=== PATIENT | male | born 1970 | race Caucasian/White ===

== ENCOUNTER → 2019-08-25 11:48 | Outpatient (BNVA) | payer MEDICARE, BC, SELFPAY | PROVIDERS: PCP Family Medicine; Visit Provider Family Medicine | DX: R21 Rash and other nonspecific skin eruption (principal); G47.30 Sleep apnea, unspecified; G47.00 Insomnia, unspecified | CPT/HCPCS: 80053; 85025; 85651; 86140; 86592; 86611; 87491; 87591; 87806 ==

== ENCOUNTER 2019-11-12 20:00 | Outpatient (CLI) | payer MEDICARE, BC, SELFPAY | END 2019-11-12 20:01 | disposition home or self-care (01) | LOC: SLEEP 11-13 10:18 | PROVIDERS: PCP Family Medicine; Visit Provider Family Medicine | DX: G47.30 Sleep apnea, unspecified (principal); G47.00 Insomnia, unspecified | CPT/HCPCS: 95811 ==

== ENCOUNTER → 2020-01-20 09:03 | Outpatient (BNVA) | payer MEDICARE, BC, SELFPAY | PROVIDERS: PCP Family Medicine; Visit Provider Nurse Practitioner Family | DX: I11.0 Hypertensive heart disease with heart failure (principal); I50.20 Unspecified systolic (congestive) heart failure; Z87.891 Personal history of nicotine dependence | CPT/HCPCS: 80048 ==

== ENCOUNTER → 2020-01-29 09:34 | Outpatient (BNVA) | payer MEDICARE, OTHER, SELFPAY | PROVIDERS: PCP Family Medicine; Referring Provider Dermatology; Visit Provider Dermatology | DX: R21 Rash and other nonspecific skin eruption (principal) | CPT/HCPCS: 11104; 88304; 88305; 99203 ==

== ENCOUNTER → 2020-02-12 08:12 | Outpatient (BNVA) | payer MEDICARE, BC, SELFPAY | PROVIDERS: PCP Family Medicine; Visit Provider Dermatology | DX: L82.1 Other seborrheic keratosis (principal); L43.9 Lichen planus, unspecified | CPT/HCPCS: 86803; 99213 ==

== ENCOUNTER → 2020-04-05 10:22 | Outpatient (BNVA) | payer MEDICARE, OTHER, SELFPAY | PROVIDERS: PCP Family Medicine; Visit Provider Family Medicine | DX: D50.9 Iron deficiency anemia, unspecified (principal); R79.89 Other specified abnormal findings of blood chemistry | CPT/HCPCS: 82728; 83550 ==

== ENCOUNTER 2020-08-05 07:36 | Outpatient (CLI) | payer MEDICARE, OTHER, SELFPAY ==
--- NOTE | 2020-08-05 08:00 | USCV_ITS ---
Gwendolyn Keith Age: 50 Gender: M : 1970 Exam Date: 08/05/2020 08:04 Ordering Phys: Cali Samson MD ([email or web address]) Technologist: Eugene Cain [place] [facility] [place]: cardiomyopathy BP: 145 / 88 HR: 62 Rhythm: Sinus Technical Quality: Good MEASUREMENTS (Male / Female) Normal Values 2D ECHO LV Diastolic Diameter PLAX 7.3 cm 4.2 - 5.9 / 3.9 - 5.3 cm LV Systolic Diameter PLAX 5.9 cm IVS Diastolic Thickness 1.4 cm 0.6 - 1.0 / 0.6 - 0.9 cm IVS Systolic Thickness 1.3 cm LVPW Diastolic Thickness 1.1 cm 0.6 - 1.0 / 0.6 - 0.9 cm LVPW Systolic Thickness 1.5 cm LVOT Diameter 2.2 cm LV Ejection Fraction 2D Teich 38.4 % LV Ejection Fraction MOD 2C 56.6 % LV Ejection Fraction 2C AL 58.4 % LA Diameter 4.0 cm LA Width 5.5 cm LA Height 5.4 cm RA Width 4.2 cm RA Height 5.0 cm M-MODE LV Diastolic Diameter MM 7.0 cm 4.2 - 5.9 / 3.9 - 5.3 cm LV Systolic Diameter MM 6.0 cm LV Ejection Fraction MM Teich 29.6 % IVS Diastolic Thickness MM 0.9 cm 0.6 - 1.0 / 0.6 - 0.9 cm IVS Systolic Thickness MM 1.6 cm LVPW Diastolic Thickness MM 1.7 cm 0.6 - 1.0 / 0.6 - 0.9 cm LVPW Systolic Thickness MM 1.9 cm RV Diastolic Diameter MM 1.8 cm Aortic Annulus Diameter 3.8 cm LA Ao Ratio MM 1.3 MV E Point Septal Separation 2.3 cm DOPPLER AV Peak Velocity 134.0 cm/s LVOT Peak Velocity 95.0 cm/s AV Area Cont Eq vti 2.4 cm squared AV Area Cont Eq pk 2.6 cm squared MV Area PHT 5.0 cm squared Mitral E to A Ratio 0.8 MV E' Velocity 38.0 cm/s Mitral E to MV E' Ratio 9.4 Mitral E to LV E' Lateral Ratio 8.5 Mitral E to LV E' Septal Ratio 10.8 TR Peak Velocity 169.3 cm/s TR Peak Gradient 11.5 mmHg TV Peak E Velocity 89.0 cm/s Right Atrial Pressure 7.0 mmHg Pulmonary Artery Systolic Pressu 18.5 mmHg PV Peak Velocity 145.0 cm/s FINDINGS Left Ventricle Severely increased left ventricular cavity size. Severely decreased left ventricular systolic function. Global left ventricular hypokinesis. Left ventricular ejection fraction is estimated at 29 %. Grade I/IV diastolic dysfunction (abnormal relaxation filling pattern), normal to mildly elevated filling pressures. Right Ventricle Catheter/pacemaker wire visualized in the right ventricle. Normal right ventricular size. Right Atrium The right atrium is normal in size. Left Atrium The left atrium is normal in size. Mitral Valve Structurally normal mitral valve without significant stenosis or prolapse. There is no mitral regurgitation. Aortic Valve Structurally normal aortic valve without significant sclerosis or stenosis. There is no aortic regurgitation. Tricuspid Valve Structurally normal tricuspid valve without significant stenosis or regurgitation. Pulmonary artery systolic pressure is normal. Pulmonic Valve Structurally normal pulmonic valve without significant stenosis. There is no pulmonic regurgitation. Pericardium Normal pericardium without effusion. Aorta Normal ascending aorta dimension. CONCLUSIONS 1-Severely increased left ventricular cavity size. Severely decreased left ventricular systolic function. Global left ventricular hypokinesis. Left ventricular ejection fraction is estimated at 29 %. Grade I/IV diastolic dysfunction (abnormal relaxation filling pattern), normal to mildly elevated filling pressures. 2-No significant valve abnormalities. 3-There is no pericardial effusion. 4-Pulmonary artery systolic pressure is within normal limits. 5-Catheter/pacemaker wire visualized in the right ventricle. Normal right ventricular size. 6-Right atrial pressure is around 5 mm of mercury. 7-When compared to the prior echocardiogram dated August 07, 2017 there is a worsening of LV function from moderately reduced 46% to severely reduced 29 % now. Cali Samson MD (Electronically Signed) Final Date: 05 August 2020 15:58 S
== END 2020-08-05 07:37 | disposition home or self-care (01) ==
PROVIDERS: PCP Family Medicine; Visit Provider Internal Medicine Cardiovascular Disease
DX: R06.02 Shortness of breath (principal); I42.9 Cardiomyopathy, unspecified; Z95.0 Presence of cardiac pacemaker
CPT/HCPCS: 93306

== ENCOUNTER → 2021-11-01 15:25 | Outpatient (BNVA) | payer MEDICARE, SELFPAY | PROVIDERS: PCP Family Medicine; Visit Provider Internal Medicine Cardiovascular Disease | DX: I11.0 Hypertensive heart disease with heart failure (principal); I42.0 Dilated cardiomyopathy; I50.22 Chronic systolic (congestive) heart failure; Z95.810 Presence of automatic (implantable) cardiac defibrillator | CPT/HCPCS: 99214 ==

== ENCOUNTER 2021-11-10 11:19 | Outpatient (CLI) | payer MEDICARE, OTHER, SELFPAY ==
--- NOTE | 2021-11-10 11:35 | XR_ITS ---
WS: [id number] Exam: XR lumbar spine 2-3V* [id number] Date/Time of Exam: 11/10/2021 11:35 AM Reason For Exam: chronic low back pain No acute fracture or dislocation. Mild degenerative anterolisthesis of L4 on L5 with about [address] movement of L4. Facet arthropathy at all levels. Mild degenerative disc changes at L4-5 and L5-S1. Spondylosis. Mild levoscoliosis. XR/XR lumbar spine 2-3V* [id number] IMPRESSION: 1. Mild degenerative anterolisthesis of L4 on L5 with about 5 mm forward moveme nt of L4. 2. Facet arthropathy at all levels most marked at L4-5 and L5-S1. Additional de generative changes as above. Mild levoscoliosis. 3. No fracture.
--- NOTE | 2021-11-10 11:35 | XR_ITS ---
WS: [id number] Exam: XR hip LT 2-3V wo/w pel* [id number] Date/Time of Exam: 11/10/2021 11:35 AM Reason For Exam: chronic left hip pain No acute fracture or dislocation. Mild degenerative thinning of the joint space. Normal soft tissues. XR/XR hip LT 2-3V wo/w pel* [id number] IMPRESSION: 1. Mild DJD.
== END 2021-11-10 11:20 | disposition home or self-care (01) ==
LOC: RAD 11:28
PROVIDERS: PCP Family Medicine; Visit Provider Family Medicine
DX: M25.552 Pain in left hip (principal); G89.29 Other chronic pain; M54.50 Low back pain, unspecified
CPT/HCPCS: 72100; 73502

== ENCOUNTER → 2022-01-11 13:54 | Outpatient (BNVA) | payer MEDICARE, OTHER, SELFPAY | PROVIDERS: PCP Family Medicine; Referring Provider Family Medicine; Visit Provider Specialist | DX: M16.12 Unilateral primary osteoarthritis, left hip (principal); M25.552 Pain in left hip; G89.29 Other chronic pain | CPT/HCPCS: 73502; 99204 ==

== ENCOUNTER → 2022-06-14 15:30 | Outpatient (BNVA) | payer MEDICARE, OTHER, SELFPAY | PROVIDERS: PCP Family Medicine; Visit Provider Internal Medicine Cardiovascular Disease | DX: I10 Essential (primary) hypertension (principal); I50.20 Unspecified systolic (congestive) heart failure; G47.30 Sleep apnea, unspecified; Z45.02 Encounter for adjustment and management of automatic implantable cardiac defibrillator; I48.91 Unspecified atrial fibrillation; Z87.891 Personal history of nicotine dependence | CPT/HCPCS: 80053; 80061; 83735; 84443; 85025; 99215 ==

== ENCOUNTER → 2022-07-03 11:33 | Outpatient (BNVA) | payer MEDICARE, SELFPAY | PROVIDERS: PCP Family Medicine; Visit Provider Internal Medicine Cardiovascular Disease | DX: I48.91 Unspecified atrial fibrillation (principal); Z95.0 Presence of cardiac pacemaker; I11.0 Hypertensive heart disease with heart failure; I50.20 Unspecified systolic (congestive) heart failure; I49.9 Cardiac arrhythmia, unspecified | CPT/HCPCS: 36415; 80048; 80076; 83735; 83880; 93005 ==

== ENCOUNTER → 2022-07-20 09:55 | Outpatient (BNVA) | payer MEDICARE, OTHER, SELFPAY | PROVIDERS: PCP Family Medicine; Visit Provider Nurse Practitioner Family | DX: I48.91 Unspecified atrial fibrillation (principal); Z95.810 Presence of automatic (implantable) cardiac defibrillator; I11.0 Hypertensive heart disease with heart failure; I50.20 Unspecified systolic (congestive) heart failure; Z87.891 Personal history of nicotine dependence; Z79.01 Long term (current) use of anticoagulants | CPT/HCPCS: 93288; 99214 ==

== ENCOUNTER 2022-08-14 06:17 | Day surgery (SDC) | payer MEDICARE, OTHER, SELFPAY ==
[2022-08-11 12:27] VITALS: BMI 36.9
--- NOTE | 2022-08-14 06:45 | USCV_ITS ---
Gwendolyn Keith Age: 52 Gender: M : 1970 Exam Date: 08/14/2022 08:16 Ordering Phys: Timbo Linares MD ([email or web address]) Technologist: Eugene Cain Exam Location: [facility] [place] Indication: afib BP: / HR: Rhythm: Sinus Technical Quality: Excellent MEASUREMENTS (Male / Female) Normal Values Medications IV propofol administered by anesthesia service Complications None. Proc. Components The patient was brought to the YUNG examination room in a fasting state after obtaining an informed consent. The YUNG probe was passed into the posterior pharynx , mid-esophagus, distal esophagus, and gastric fundus. YUNG was performed at multiple levels. The patient tolerated the procedure well and there were no complications. FINDINGS Left Ventricle Dilated with a severe diffuse hypokinesia. LV ejection fraction are 25%. Right Ventricle Normal right ventricular size. Mildly decreased right ventricular systolic function. Pacemaker/defibrillator wire was noted in the right ventricle Right Atrium Mildly increased right atrial size. Pacemaker wire was noted in the right atrium Left Atrium Moderately increased left atrial size. LA Appendage Normal size with diminished contractility IA Septum Normal interatrial septum. No evidence of ASD or PFO based on the color-flow Doppler examination or by saline contrast injection. Mitral Valve Mild-moderate mitral valve regurgitation. Aortic Valve Tricuspid valve with no significant abnormalities Tricuspid Valve No significant abnormalities Pulmonic Valve Structurally normal pulmonic valve. Pericardium No pericardial effusion. Aorta Minimal plaques and intimal thickening.normal size aortic root and proximal ascending aorta. CONCLUSIONS No intracardiac masses or vegetations Dilated left ventricle with severe diffuse hypokinesia. Ejection fraction around 25%. Normal RV size with a slightly diminished ejection fraction. Biatrial enlargement,L>R Mild-moderate mitral valve regurgitation. Left atrial appendage is of normal size with diminished contractility. Minimal plaques or intimal thickening in the aorta Dr Timbo Linares MD [facility] (Electronically Signed) Final Date: 15 August 2022 07:35 S
--- NOTE | 2022-08-14 06:48 | ECG_ITS ---
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 Measurements Intervals [place] Rate: 79 P: 0 NE: 0 QRS: 151 QRSD: 176 T: -55 QT: 454 QTc: 523 Interpretive Statements UNCERTAIN IRREGULAR RHYTHM ELECTRONIC VENTRICULAR PACEMAKER -- CONTOUR ANALYSIS BASED ON INTRINSIC RHYTHM RIGHT AXIS DEVIATION [QRS AXIS > 100] INTRAVENTRICULAR CONDUCTION DELAY [130+ ms QRS DURATION] No previous ECG available for comparison Electronically Signed On 08-14-2022 17:33:09 CONSULTING SME by Tee Mcdaniel M.D. [id number]
[2022-08-14 06:59] VITALS: BP 96/71; PULSE 84; RESP 16; TEMP 36.1; O2SAT 95
[2022-08-14] MEDS: sodium chloride 0.9% 1,000 ML 30 ML IV (07:02)
--- NOTE | 2022-08-14 07:07 | ANES.PREANE2 ---
Pre-Anesthetic Assessment Height/Weight: Height 1.75 m Weight 113.398 kg Temp Pulse Resp BP Pulse Ox O2 Del Method 97.0 F L 84 16 96/71 95 08/14/22 06:59 08/14/22 06:59 08/14/22 06:59 08/14/22 06:59 08/14/22 06:59 08/14/22 06:59 Preop Diagnosis: Irregular heart beat Operation Date: 08/14/22 08:00 Proposed Procedures p YUNG w/Cardioversion 27242/41995, I48.91(Not Applicable) - Timbo Linares MD s Cardioversion(Not Applicable) - Timbo Linares MD Was Beta Jaguar taken within 24 hours: Yes Was Clonidine taken within 24 hours: N/A Last intake: Intake Last Liquid Date 08/13/22 Last Liquid Time 23:45 Last Solid Date 08/13/22 Last Solid Time 21:00 Social Alcohol (3-4 days weekly two drinks) Exam alert and oriented x 3 Airway Submandibular: within normal limits Cervical ROM: within normal limits Mallampati: Class II Dentition: chipped (lower teeth three busted up ) Pulmonary Sleep Apnea (Bipap) CV/HEM Arrythmia (pacer/defib), Congestive Heart Failure (enlarged heart) and Hypertension None reported Hepatic None reported GI None reported Metabolic None reported Musc/skel Lower Back Pain (hip dysplasia) Neuropsych None reported Anesthetic Plan ASA status: 3 Anesthesia: Anesthesia Evaluation Risk of > 500 ml blood loss (7ml/kg in children): No Medications/Allergies Home Medications Medication Instructions Recorded Confirmed Last Taken Type BIPAP #1 ea 01/02/20 08/14/22 Unknown Rx meloxicam 7.5 mg tablet 7.5 mg PO DAILY #30 tabs 01/23/22 08/14/22 08/14/22 Rx furosemide 20 mg tablet (Lasix) 20 mg PO DAILY PRN weight gain #90 04/27/22 08/14/22 08/13/22 Rx tabs metoprolol succinate 100 mg 100 mg PO DAILY #90 tabs 04/27/22 08/14/22 08/14/22 Rx tablet,extended release 24 hr valsartan 160 mg tablet 160 mg PO BID #180 tabs 04/27/22 08/14/22 08/13/22 Rx apixaban 5 mg tablet (Eliquis) 5 mg PO BID #180 tabs 06/21/22 08/14/22 08/14/22 Rx amiodarone 200 mg tablet 200 mg PO DAILY 08/11/22 08/14/22 08/14/22 History eplerenone 50 mg tablet (Inspra) 25 mg PO DAILY 08/11/22 08/14/22 08/14/22 History trazodone 50 mg tablet 100 mg PO BEDTIME 08/11/22 08/14/22 08/13/22 History Allergies Allergy/AdvReac Type Severity Reaction Status Date / Time No Known Allergies Allergy Verified 08/14/22 06:54 Current Medications Generic Name Dose Route Start Last Admin Trade Name Freq PRN Reason Stop Dose Admin Sodium Chloride 1,000 mls @ 30 mls/hr 08/14/22 06:30 08/14/22 07:02 Sodium Chloride 0.9% IV 08/15/22 06:29 30 mls/hr .Q24H BELL Administration PFSH Anesthesia Medical History Cardiac resynchronization therapy defibrillator (DECORATOR LIGHTING FIXTURES-D) in place Cardiomyopathy Essential hypertension ICD (implantable cardioverter-defibrillator) battery depletion Malignant hypertension Systolic CHF with reduced left ventricular function, NYHA class 2 Surgical History Status post correction of deviated nasal septum Family History Other CAD (coronary artery disease) Denies family history of Diabetes Cancer Hypertension Social History Smoking and tobacco status: former smoker Alcohol intake: current Alcohol intake frequency: holidays/special occasions only History of recent travel: Yes ([facility]) Data Anesthesia Cardiac Studies: Echocardiogram Ultrasound 08/05/20
--- NOTE | 2022-08-14 08:13 | W.PM.OPSUD ---
Surgery/Procedure H&P Update DATE OF PROCEDURE: August 14, 2022 DATE H&P PERFORMED: 07/20/22 H&P UPDATE INFORMATION: I have reviewed H&P completed within last 30 days, I have examined patient prior to procedure and No changes to prior documentation PREOP DIAGNOSIS: Atrial fibrillation PRIMARY INDICATION FOR PROCEDURE: Symptomatic atrial fibrillation PLANNED PROCEDURE: Operation Date: 08/14/22 08:00 Proposed Procedures p YUNG w/Cardioversion 35891/[id number], I48.91(Not Applicable) - Timbo Linares MD s Cardioversion(Not Applicable) - Timbo Linares MD ADDITIONAL INFORMATION: The risk of aspiration, bleeding, soft tissue injury, perforation of the stomach/esophagus, CVA/malignant cardiac arrhythmia and other concomitant complications were explained. Since the patient has cardiomyopathy with markedly diminished systolic dysfunction, the success rate of cardioversion and the chances of maintaining sinus rhythm are relatively low . These issues were discussed with the patient in detail. The patient understood these well and consented to proceed
--- NOTE | 2022-08-14 08:44 | PM.OP ---
Operative Report Date of procedure: August 14, 2022 Pre-op diagnosis: Preop Diagnosis Atrial fibrillation Procedure: Electrical cardioversion report Preprocedure diagnoses: Atrial fibrillation Brief history: Atrial fibrillation/hypertension. Nonischemic cardiomyopathy, status post BUS ASSISTANT-D. He was found to have symptomatic atrial fibrillation. For further management of his condition, cardioversion was recommended. He was started on Eliquis and amiodarone as outpatient. YUNG revealing no intracardiac masses. Location of the procedure: GI Lab Electrode application: Anteroposterior Electrical energy applied: 100 J of biphasic current Number of shocks: Single Final rhythm: A sensed V paced rhythm Final blood pressure: 110/70 Complications: None Recommendation(s): Continue Eliquis and amiodarone
[2022-08-14 08:50] VITALS: BP 101/71; PULSE 60; RESP 20; TEMP 36.1; O2SAT 91
[2022-08-14 09:00] VITALS: BP 115/69; PULSE 55; RESP 18; O2SAT 91
--- NOTE | 2022-08-14 09:05 | ECG_ITS ---
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 Measurements Intervals [place] Rate: 55 P: 18 ND: 191 QRS: 143 QRSD: 166 T: -62 QT: 531 QTc: 509 Interpretive Statements ELECTRONIC VENTRICULAR PACEMAKER Compared to ECG 08/14/2022 06:48:57 Right-axis deviation no longer present Intraventricular conduction delay no longer present Electronically Signed On 08-14-2022 17:30:26 MACHINE MOLDER by Tee Mcdaniel M.D. [email or web address] [id number]
--- NOTE | 2022-08-14 09:27 | PC.NURSE ---
100J shock delivered at 0843
--- NOTE | 2022-08-14 15:35 | ANE.PACU2 ---
Inpatient post-anesthesia follow up: Airway intact: Yes Vital signs: Temperature 97.0 F Pulse Rate 55 Respiratory Rate 18 Blood Pressure 115/69 Pulse Oximetry 91 Oxygen Delivery Me thod Room Air Oxygen Flow Rate Fraction of Inspir ed Oxygen Hydration adequate: Yes Nausea and vomiting: No Pain level: 1 Mental status: Baseline
== END 2022-08-14 09:45 | disposition home or self-care (01) ==
PROVIDERS: PCP Family Medicine; Visit Provider Internal Medicine Cardiovascular Disease
PROC: (CPT 93312; principal; 2022-08-14 08:00)
PROC: 5A2204Z Restoration of Cardiac Rhythm, Single (ICD-10-PCS; 2022-08-14 08:00)
DX: I48.91 Unspecified atrial fibrillation (principal); I11.0 Hypertensive heart disease with heart failure; I50.20 Unspecified systolic (congestive) heart failure; I42.9 Cardiomyopathy, unspecified; Z87.891 Personal history of nicotine dependence; G47.33 Obstructive sleep apnea (adult) (pediatric)
CPT/HCPCS: 92960; 93005; 93312; 93320; 93325; J2250; J2704; J7030

== ENCOUNTER → 2022-08-23 10:35 | Outpatient (BNVA) | payer MEDICARE, OTHER, SELFPAY | PROVIDERS: PCP Family Medicine; Visit Provider Nurse Practitioner Family | DX: I48.91 Unspecified atrial fibrillation (principal); Z95.810 Presence of automatic (implantable) cardiac defibrillator; Z79.01 Long term (current) use of anticoagulants; Z87.891 Personal history of nicotine dependence | CPT/HCPCS: 93005; 99214 ==

== ENCOUNTER → 2022-09-12 08:47 | Outpatient (BNVA) | payer MEDICARE, OTHER, SELFPAY | PROVIDERS: PCP Family Medicine; Visit Provider Nurse Practitioner Family | DX: M24.152 Other articular cartilage disorders, left hip (principal) | CPT/HCPCS: 73502; 99214 ==

== ENCOUNTER → 2022-10-11 10:16 | Outpatient (BNVA) | payer MEDICARE, OTHER, SELFPAY | PROVIDERS: PCP Family Medicine; Visit Provider Anesthesiology Pain Medicine | DX: G89.29 Other chronic pain (principal); M43.16 Spondylolisthesis, lumbar region; M47.816 Spondylosis without myelopathy or radiculopathy, lumbar region; M16.12 Unilateral primary osteoarthritis, left hip | CPT/HCPCS: 99204 ==

== ENCOUNTER → 2022-11-07 14:36 | Outpatient (BNVA) | payer MEDICARE, OTHER, SELFPAY | PROVIDERS: PCP Family Medicine; Visit Provider Family Medicine | DX: R39.11 Hesitancy of micturition (principal) | CPT/HCPCS: 81000 ==

== ENCOUNTER → 2023-03-21 14:48 | Outpatient (BNVA) | payer MEDICARE, OTHER, SELFPAY | PROVIDERS: PCP Family Medicine; Visit Provider Internal Medicine Cardiovascular Disease | DX: Z45.02 Encounter for adjustment and management of automatic implantable cardiac defibrillator (principal); I48.91 Unspecified atrial fibrillation; Z79.01 Long term (current) use of anticoagulants; G47.33 Obstructive sleep apnea (adult) (pediatric); I42.0 Dilated cardiomyopathy; I11.0 Hypertensive heart disease with heart failure; I50.20 Unspecified systolic (congestive) heart failure; Z87.891 Personal history of nicotine dependence | CPT/HCPCS: 99215 ==

== ENCOUNTER 2023-03-30 05:38 | Outpatient (CLI) | payer MEDICARE, SELFPAY ==
[2023-03-30] VITALS (13 sets, daily range): BP systolic 106–131; BP diastolic 58–81; PULSE 52–73; RESP 12–19; TEMP 37.1; O2SAT 94–99; BMI 39.7
--- NOTE | 2023-03-30 06:00 | XACV_ITS ---
Exam Room: 1 Ht: 175 cm Wt: 122 kg BSA: 2.49 m2 Gender: Male : 1970 Any Known Allergies: No known allergies Exam Priority: Routine Procedure(s): Procedure Description: Diagnostic procedure Procedure Description: Miscellaneous Procedure Description: Generator Replacement PP (EOL) Diagnostic Cath Status: Elective Conclusions 1. This patient has a PAPER CONE DRYING MACHINE OPERATOR-D which was found to have elective replacement indication. The patient underwent this procedure with local anesthesia and IV sedation. For the details of the procedure, please refer to the procedure report done separately. Clinical Evaluation EBL: 5mL-10mL Procedural Details Procedure Consent Obtained. Admit Source: Out Patient. Pre-Procedure Time Out. Identified patient by full name and date of as verbalized by the patient/guarantor. Does the consent match the physician's order: Yes. Accurate & Complete Informed Consent: Yes. Inpatient/Outpatient History & Physical on Chart: Yes. If H&P is completed, is and addenduem needed: No; If yes, is the addendum complete: N/A. Visualize and Verify Site with Patient/Guarantor: N/A. Relevant Radiology Images available: N/A. The risks, benefits, and alternatives of sedation and/or procedure were discussed by physician. The patient agrees to continue. Procedure started. Current diagnosis: JANI, Afib, Non-ischemic Cardiomyopathy. PERRLA. Strong, equal hand finance business partner bilaterally. Lungs clear x 5 lobes. IV Site on Arrival: 20 gauge in the left anticubital. IV Fluids: 0.9% NaCl at 75ml/hr. 0 mL infused prior to supervisor laboratory. Oxygen started at 2liters/min via nasal canula. bilateral subclavian region was prepped with chloroprep then draped in the usual sterile fashion. Physician notified. Baseline sample Acquired. HR: 58 BPM. Physician arrived. Pre sponge count: 55. Pre sharps count: 19. Pre instrument count: 11. Ancef 2g IV was given at 0722 in laborer demolition. Physician scrubbed in. Time out performed with cath team. Lidocaine 1% with epi infiltrated to Left subclavian area. Incision and pacer pocket made in left subclavian region. Bovie pen used to cauterize bleeding vessel. 2.0 Silk suture used to tie off bleeding vessel. Lidocaine 1% infiltrated to Left subclavian area. Device out of pocket. Old generator dettached. New Generator attached and tested. 1 instrument added. Antibiotic flush used to clean pacer pocket. Generator secured with surgilon. Generator Lot# [id number], EXP 06-14-2024. Subcutaneous tissue closed with 3-0 vicryl. Cutaneous tissue closed with 4-0 vicryl. All final counts correct. left subclavian pocket dressed per physician order. Mannie wrap and 4x4's in place. No bleeding or hematoma noted at left subclavian pocket. Post Procedure: Pulses reassessed and unchanged. Total IV fluids: 309 mL. No VTE prophylaxis required. Post-op diagnosis: JANI, AFIB, Non-ischemic Cardiomyopathy. Estimated blood loss: 5mL-10mL. Complications: None. Waste : Lidocaine 1% with Epi - 4ml. Procedure completed. Procedure Medications Start: 7:21 AM Stop: 7:21 AM Medication: Versed Amount: 1 mg Route: I.V. Start: 7:21 AM Stop: 7:21 AM Medication: Fentanyl Amount: 50 mcg Route: I.V. Start: 7:27 AM Stop: 7:27 AM Medication: 0.9% Saline Amount: 250 ml Route: I.V. bolus Start: 7:27 AM Stop: 7:27 AM Medication: Versed Amount: 1 mg Route: I.V. Start: 7:27 AM Stop: 7:27 AM Medication: Fentanyl Amount: 50 mcg Route: I.V. Start: 7:38 AM Stop: 7:38 AM Medication: Versed Amount: 1 mg Route: I.V. Start: 7:39 AM Stop: 7:39 AM Medication: Fentanyl Amount: 25 mcg Route: I.V. Start: 7:51 AM Stop: 7:51 AM Medication: Fentanyl Amount: 25 mcg Route: I.V. Start: 7:53 AM Stop: 7:53 AM Medication: Versed Amount: 1 mg Route: I.V. Start: 7:53 AM Stop: 7:53 AM Medication: Fentanyl Amount: 50 mcg Route: I.V. I, the attending physician, have reviewed and verified all procedure medications. Yes, all medications given per verbal order History/Risk Factors Hypertension: Yes Dyslipidemia: No Peripheral Arterial Disease (PAD): No Myocardial Infarction (AK): No Obesity: No Renal Disease: No Tobacco Use: Former Prior Interventions PCI: No CABG: No Valve Surgery: No Report Signatures Finalized by Dr Timbo Linares MD [facility] on 03/30/2023 03:07 PM
[2023-03-30 06:17] LABS: Basophils # 0.1 10^3/uL (0.0-0.1); Basophils % 0.6 %; Eosinophils # 0.2 10^3/uL (0.0-0.8); Eosinophils % 2.4 %; Hematocrit 42.5 % (37-53); Lymphocytes # 2.5 10^3/uL (0.8-4.8); Lymphocytes % 31.2 %; Mean Corpuscular HGB Conc 33.4 g/dL (30-55); Mean Corpuscular Hemoglobin 31.8 pg (27-33); Mean Corpuscular Volume 95.1 fl (82-101); Mean Platelet Volume 9.3 fL (7.4-10.4); Monocytes % 12.3 %; Neutrophils # 4.23 10^3/uL (1.8-7.7); Neutrophils % 52.9 %; Nucleated Red Blood Cells % 0 %; Platelet Count 245 10^3/cmm (157-399); Red Blood Count 4.47 10^6/uL (3.85-5.65); Red Cell Distribution Width 11.9 % (12.1-15.1); White Blood Count 7.99 10^3/uL (3.29-11.43)
[2023-03-30 06:34] LABS: Partial Thromboplastin Time 35.9 SECONDS (23.9-36.7)
[2023-03-30 06:42] LABS: Anion Gap 14.9 (5-19); Blood Urea Nitrogen 27 mg/dL (6-20); Calcium 9.5 mg/dL (8.5-10.5); Carbon Dioxide 27 mmol/L (22-29); Chloride 100 mmol/L (98-107); Glomerular Filtration Rate 69.8 mL/min (90-130); Glucose 69 mg/dL (65-115); Osmolality Calculated 289 mOsm/kg (285-295); Potassium 3.9 mmol/L (3.5-5.1); Sodium 138 mmol/L (136-145)
--- NOTE | 2023-03-30 07:11 | W.PM.OPSUD ---
Surgery/Procedure H&P Update DATE OF PROCEDURE: March 30, 2023 DATE H&P PERFORMED: 03/21/23 H&P UPDATE INFORMATION: I have reviewed H&P completed within last 30 days, I have examined patient prior to procedure and No changes to prior documentation PREOP DIAGNOSIS: ICD/ JANI PRIMARY INDICATION FOR PROCEDURE: PT with history of non ischemic cardiomyopathy/ AFIB/bradycardia PLANNED PROCEDURE: Operation Date: 03/30/23 07:00 Proposed Procedures p [place] 60328,Z45.010,Z45.02(Not Applicable) - Timbo Linares MD PATIENT REASSESSED PRIOR TO SEDATION, WITH NO CHANGE NOTED: Yes PHYSICAL EXAM: alert, oriented x 3, clear to auscultation bilaterally, regular rate & rhythm and operative site marked AIRWAY EVAL/ANESTHESIA PLAN: normal airway, see other exam findings, ASA III, Monitored Anesthesia, Local Anesthesia, Risks, benefits & alternatives of sedation and/or procedure discussed and Patient agrees to continue as planned
--- NOTE | 2023-03-30 08:30 | SUR.EXTENDED ---
Received the patient back from the clinical laboratory scientist s/p Pacemaker Generator change via floor bed. Patient drowsy. Awakens easily to voice. Alert and oriented x3. monitor and storage bin tender placed and vital signs obtained. Bulky pressure dressing noted to the left upper chest. Dry and intact with no bleeding or hematoma noted. No other assessment changes noted from pre cath assessment. Will transfer to [facility] after recovery.
--- NOTE | 2023-03-30 08:36 | P.OP_ITS ---
Operative Report Date of procedure: March 30, 2023 Surgeon: Timbo Linares MD Procedure: PROCEDURE: ICD REVISION PREOPERATIVE DIAGNOSIS: ICD elective replacement indication. POSTOPERATIVE DIAGNOSIS: ICD elective replacement indication. ESTIMATED BLOOD LOSS: Around 5 milliliters. COMPLICATIONS: None. BRIEF HISTORY: The patient is a 53-year-old white male who had a ICD implantation for primary prophylaxis, cardiomyopathy, intermittent atrial fibrillation/bradycardia. The patient was found to have elective replacement indication, during routine office followup evaluation. For further management of patient's condition and for the symptomatic bradycardia, the patient required an ICD revision. The procedure was explained to the patient and his in detail with the risks and benefits. The risks of bleeding, hematoma, vascular injury, infection and other concomitant complications were explained in detail, which the patient understood well and consented to proceed. PROCEDURES PERFORMED: 1. Explantation of the old ICD device . 2. Implantation of the new ICD device The patient brought to the Cardiac Conference Organizer. The left side of the neck and the subclavian area were cleaned and draped in a sterile fashion. 1% Xylocaine was used for local anesthetic agent. A 2 inch long incision was made just below the previous pacemaker scar. By sharp and blunt dissection, the ICD pocket was accessed. The old generator was delivered from the pocket. The generator was detached from the lead s. The new generator was attached to the lead. The ICD pocket was copiously irrigated with vancomycin solution. Complete hemostasis was achieved. The lead was positioned behind the generator and the generator was attached to the pectoralis fascia by suturing with 0 Surgilon. Sponge counts were confirmed. The ICD pocket was closed in layers. Skin was approximated using 4-0 Vicryl. EXPLANTED DEVICE: ICD Device: Date of implant 12/21/2015 Brand: Amplia Quad TWISTING OPERATOR-D. Model number: [id number]. Serial number: [id number]. IMPLANTED DEVICES: Ventricular Lead: Date of implantation: 12/21/2015 Model number: 6947/62 Serial number: [id number] Make: Medtronic. Left-ventricular lead Date of implantation: 12/21/2015 Model number: 4598/88 Serial number: [id number] Make: Medtronic Atrial Lead Date of implantation 12/21/2015 Model number 5076/52 Serial number [id number] Make: Medtronic Implanted Generator: Date of implantation 03/20/2023 Brand: [place] HF Quad TWISTING OPERATOR-D MRI SurePradeepan. Model number: [id number] Serial number: [id number] Stimulation Threshold: Through the Device--the ventricular sensing was 5.1 millivolts. Lead impedance of 323 and the pacing threshold was 1.75 volts at 0.4 milliseconds. The atrial sensing was 3.0 millivolts. The lead impedance was 399 ohms and the pacing threshold was 0.5 volts at 0.4 ms. The HV lead impedance was 42/56 ohms The pacemaker was set for DDD mode with an upper rate of 150 and a lower rate of 50. Atrial output 21.5 and the ventricular output 3.5. Atrial sensitivity 0.3 and the ventricular sensitivity 0.3. The LV configuration LV 1 - LV 2. LV output 2.25 V. The DFT testing was not done Ventricular tachycardia detection rate was set at 188 bpm The ventricular fibrillation detection rate was set at 222 bpm A pressure dressing was applied over the ICD site. The patient was transferred back to medical floor in stable condition.
--- NOTE | 2023-03-30 09:02 | SUR.EXTENDED ---
Patient transferred via bed to [facility]. Bedside report to YEVGENIY Arnold.
--- NOTE | 2023-03-30 12:37 | PC.NURSE ---
pt brought his own home cpap machine at bedside now
[2023-03-30] MEDS: ceFAZolin 3,000 MG in sodium chloride 0.9% (100 ml) 100 ML 200 MG IV ×2 (15:36→23:46)
[2023-03-30] MEDS: acetaminophen 325 mg Tablet 650 MG PO (16:21)
[2023-03-30] MEDS: losartan 50 mg Tablet PO (20:56)
[2023-03-30] MEDS: trazodone 100 mg Tablet PO (20:56)
--- NOTE | 2023-03-31 05:59 | ECG_ITS ---
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 Measurements Intervals [place] Rate: 54 P: 38 MT: 203 QRS: 130 QRSD: 161 T: -17 QT: 495 QTc: 472 Interpretive Statements ELECTRONIC VENTRICULAR PACEMAKER-possible a stent to be placed ABNORMAL RHYTHM ECG Compared to ECG 08/14/2022 09:11:17 No significant changes Electronically Signed On 03-31-2023 21:29:02 CDT by Timbo Linares M.D. [id number]
[2023-03-31 06:00] VITALS: PULSE 62
[2023-03-31] MEDS: ceFAZolin 3,000 MG in sodium chloride 0.9% (100 ml) 100 ML 200 MG IV (06:08)
[2023-03-31] MEDS: acetaminophen 325 mg Tablet 650 MG PO (06:23)
[2023-03-31 07:50] VITALS: BP 120/77; PULSE 58; RESP 15; TEMP 36.3; O2SAT 99
[2023-03-31] MEDS: amiodarone 200 mg Tablet PO (08:39)
[2023-03-31] MEDS: amlodipine 5 mg Tablet PO (08:39)
[2023-03-31] MEDS: metoprolol succinate ER (24 HR) 100 mg Tablet PO (08:39)
[2023-03-31] MEDS: losartan 50 mg Tablet PO (08:39)
--- NOTE | 2023-03-31 10:05 | P.PN_ITS ---
Subjective Subjective: This patient was admitted to the hospital following the device revision. He remained stable throughout the hospital course. No hematoma bleeding from the ICD revision site. Vital signs remained stable. The device was interrogated this morning and was found to be functioning okay. Medications: Medication Review Details: Current Medications Acetaminophen (Acetaminophen 325 Mg Tablet) 650 mg PO Q4H PRN PRN Reason: MILD PAIN OR INCREASE TEMP Last Admin: 03/31/23 06:23 Dose: 650 mg Amiodarone HCl (Amiodarone 200 Mg Tablet) 200 mg PO DAILY [facility] Last Admin: 03/31/23 08:39 Dose: 200 mg Amlodipine Besylate (Amlodipine 5 Mg Tablet) 5 mg PO DAILY [facility] Last Admin: 03/31/23 08:39 Dose: 5 mg Furosemide (Furosemide 20 Mg Tablet) 20 mg PO DAILY PRN PRN Reason: weight gain Sodium Chloride (Sodium Chloride 0.9%) 1,000 mls @ 75 mls/hr IV .[id number] [facility] Last Admin: 03/30/23 19:39 Dose: Not Given Losartan Potassium (Losartan 50 Mg Tablet) 50 mg PO BID [facility] Last Admin: 03/31/23 08:39 Dose: 50 mg Metoprolol Succinate (Metoprolol Succinate Er (24 Hr) 100 Mg Tablet) 100 mg PO DAILY [facility] Last Admin: 03/31/23 08:39 Dose: 100 mg Non-Formulary Medication (Eplerenone [Inspra]) 50 mg PO DAILY [facility] Last Admin: 03/31/23 08:44 Dose: Not Given Trazodone HCl (Trazodone 100 Mg Tablet) 100 mg PO BEDTIME [facility] Last Admin: 03/30/23 20:56 Dose: 100 mg Vitals/I&O/Wt Last Vital Signs Temp 97.4 F L 03/31/23 07:50 Pulse 58 L 03/31/23 07:50 Resp 15 03/31/23 07:50 BP 120/77 03/31/23 07:50 Pulse Ox 99 03/31/23 07:50 O2 Del Method BiPAP 03/31/23 07:50 03/30/23 03/31/23 03/31/23 22:59 06:59 14:59 Intake Total 336 / 936 200 / 1136 360 / 360 Balance 336 / 936 200 / 1136 360 / 360 Weight last 48 hrs Weight 269 lb Physical Exam Narrative: GENERAL: The patient is alert and oriented times three. Not in any acute distress. HEENT: No significant pallor, icterus or lymphadenopathy.Oral cavity: There are no mucous membrane lesions. NECK: Trachea appears to be central. No masses noted. No JVD or thyromegaly appreciated. RESPIRATORY: Chest is symmetrical. No intercostals muscle retraction or any accessory muscle activation. There is no chest wall tenderness. Breath sounds are heard bilaterally. No rales or rhonchi heard. No evidence of any consolidation. BREASTS: Deferred. HEART: The heart sounds are normal. No S3 or S4. No significant murmurs. No pericardial rub ABDOMEN: No vessel pulsations or distention. No tenderness. No organomegaly appreciated. Bowel sounds are normally heard. : Deferred. RECTAL: Deferred. LYMPHATIC: No lymphadenopathy noted in the neck. EXTREMITIES: No edema or cyanosis. No clubbing. MUSCULOSKELETAL: No acute joint deformities or swelling SKIN: There are no significant rashes or ecchymosis NEUROPSYCHIATRIC: The patient is alert and oriented x3. Appears to be in a good mood. No tremors or rigidity noted. Data 03/30/23 06:10 03/30/23 06:10 Other Labs: Laboratory Last Values WBC 7.99 10^3/uL (3.29-11.43) 03/30/23 06:10 RBC 4.47 10^6/uL (3.85-5.65) 03/30/23 06:10 Hgb 14.20 g/dL (11.27-16.99) 03/30/23 06:10 Hct 42.5 % (37-53) 03/30/23 06:10 MCV 95.1 fl (82-101) 03/30/23 06:10 MCH 31.8 pg (27-33) 03/30/23 06:10 MCHC 33.4 g/dL (30-55) 03/30/23 06:10 RDW 11.9 % (12.1-15.1) L 03/30/23 06:10 Plt Count 245 10^3/cmm (157-399) 03/30/23 06:10 MPV 9.3 fL (7.4-10.4) 03/30/23 06:10 Neut % (Auto) 52.9 % 03/30/23 06:10 Lymph % (Auto) 31.2 % 03/30/23 06:10 [place] % (Auto) 12.3 % 03/30/23 06:10 Eos % (Auto) 2.4 % 03/30/23 06:10 Baso % (Auto) 0.6 % 03/30/23 06:10 Neut # (Auto) 4.23 10^3/uL (1.8-7.7) 03/30/23 06:10 Lymph # (Auto) 2.5 10^3/uL (0.8-4.8) 03/30/23 06:10 [place] # (Auto) 1.0 10^3/uL (0.2-0.9) H 03/30/23 06:10 Eos # (Auto) 0.2 10^3/uL (0.0-0.8) 03/30/23 06:10 Baso # (Auto) 0.1 10^3/uL (0.0-0.1) 03/30/23 06:10 Nucleated RBC % (auto) 0 % 03/30/23 06:10 Nucleated RBCs # 0.0 /100WBC 03/30/23 06:10 APTT 35.9 SECONDS (23.9-36.7) 03/30/23 06:10 Sodium 138 mmol/L (136-145) 03/30/23 06:10 Potassium 3.9 mmol/L (3.5-5.1) 03/30/23 06:10 Chloride 100 mmol/L (98-107) 03/30/23 06:10 Carbon Dioxide 27 mmol/L (22-29) 03/30/23 06:10 Anion Gap 14.9 (5-19) 03/30/23 06:10 BUN 27 mg/dL (6-20) H 03/30/23 06:10 Creatinine 1.1 mg/dL (0.7-1.2) 03/30/23 06:10 GFR Calculation 69.8 mL/min (90-130) L 03/30/23 06:10 Glucose 69 mg/dL (65-115) 03/30/23 06:10 Calculated Osmolality 289 mOsm/kg (285-295) 03/30/23 06:10 Calcium 9.5 mg/dL (8.5-10.5) 03/30/23 06:10 A&P Assessment and plan (1) ICD (implantable cardioverter-defibrillator) battery depletion: Patient had the BANK PRESIDENT-D revision yesterday. He had an uneventful postprocedure course. The device is functioning well. No hematoma bleeding at the insertion site (2) Systolic CHF with reduced left ventricular function, NYHA class 2: Currently compensated. May continue on the current medications. (3) Cardiomyopathy: Patient is on losartan. Apparently could not afford Entresto? Qualifiers: Cardiomyopathy type: dilated Qualified Code(s): I42.0 - Dilated cardiomyopathy (4) Essential hypertension: Currently normotensive. May continue on the current medications. (5) SHAMA (obstructive sleep apnea): Patient is on CPAP Plan Advised to take antibiotics for the next 5 days along with multivitamins. May continue on the other current medications as a days Attestations Medical Necessity Statement*: Since he is remaining stable, may be discharged home today. Post device instructions were given Coding Level of Care Code 01684 Diagnoses ICD (implantable cardioverter-defibrillator) battery depletion Z45.02 Systolic CHF with reduced left ventricular function, NYHA class 2 I50.20 Cardiomyopathy I42.0 Cardiomyopathy type: dilated Essential hypertension I10 SHAMA (obstructive sleep apnea) G47.33
--- NOTE | 2023-03-31 10:52 | PC.NURSE ---
Discharge Note Patient discharged to home via private vehicle accompanied by self. Discharge instructions reviewed with patient and/or parts counter representative. Mobile pharmacy medications and/or prescriptions provided. Belongings/home medications returned.
== END 2023-03-31 10:35 | disposition home or self-care (01) ==
LOC: CCL 05:39 → CSU 11:56
PROVIDERS: PCP Family Medicine; Visit Provider Internal Medicine Cardiovascular Disease
DX: Z45.02 Encounter for adjustment and management of automatic implantable cardiac defibrillator (principal); I11.0 Hypertensive heart disease with heart failure; I50.20 Unspecified systolic (congestive) heart failure; E66.01 Morbid (severe) obesity due to excess calories; Z68.39 Body mass index [BMI] 39.0-39.9, adult; I48.91 Unspecified atrial fibrillation; Z87.891 Personal history of nicotine dependence; I42.0 Dilated cardiomyopathy; G47.33 Obstructive sleep apnea (adult) (pediatric)
CPT/HCPCS: 33264; 36415; 80048; 85025; 85730; 93005; 96361; 96365; 96367; 97165; 97530; 99152; 99153; A4216; A4565; C1769; C1882; J0690; J2250; J3010; J3370; J7030; J7050

== ENCOUNTER → 2023-05-28 10:24 | Outpatient (BNVA) | payer MEDICARE, SELFPAY | PROVIDERS: PCP Family Medicine; Visit Provider Internal Medicine Cardiovascular Disease | DX: I48.0 Paroxysmal atrial fibrillation (principal); Z79.01 Long term (current) use of anticoagulants; I11.0 Hypertensive heart disease with heart failure; I50.20 Unspecified systolic (congestive) heart failure; I42.0 Dilated cardiomyopathy; Z95.810 Presence of automatic (implantable) cardiac defibrillator; G47.33 Obstructive sleep apnea (adult) (pediatric); Z87.891 Personal history of nicotine dependence | CPT/HCPCS: 99214 ==

== ENCOUNTER → 2023-07-16 14:40 | Outpatient (BNVA) | payer MEDICARE, SELFPAY | PROVIDERS: PCP Family Medicine; Visit Provider Specialist | DX: M16.12 Unilateral primary osteoarthritis, left hip (principal); E66.9 Obesity, unspecified; Z68.39 Body mass index [BMI] 39.0-39.9, adult | CPT/HCPCS: 73502; 99214 ==

== ENCOUNTER → 2023-11-26 11:22 | Outpatient (BNVA) | payer MEDICARE, SELFPAY | PROVIDERS: PCP Family Medicine; Visit Provider Internal Medicine Cardiovascular Disease | DX: I11.0 Hypertensive heart disease with heart failure (principal); I50.20 Unspecified systolic (congestive) heart failure; Z95.810 Presence of automatic (implantable) cardiac defibrillator; I42.0 Dilated cardiomyopathy; I48.0 Paroxysmal atrial fibrillation; Z87.891 Personal history of nicotine dependence | CPT/HCPCS: 99214 ==

== ENCOUNTER → 2024-06-23 10:52 | Outpatient (BNVA) | payer MEDICARE, SELFPAY | PROVIDERS: PCP Family Medicine; Visit Provider Specialist | DX: M16.12 Unilateral primary osteoarthritis, left hip (principal); M25.552 Pain in left hip | CPT/HCPCS: 73502; 99214 ==

== ENCOUNTER 2024-10-07 14:52 | Inpatient (IN) | payer MEDICARE, SELFPAY ==
[2024-10-07] VITALS (8 sets, daily range): BP systolic 112–135; BP diastolic 74–99; PULSE 56–103; RESP 13–28; TEMP 36.6–37.1; O2SAT 92–96
--- NOTE | 2024-10-07 15:01 | ECG_ITS ---
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 Measurements Intervals [place] Rate: 100 P: 67 WI: 173 QRS: 198 QRSD: 168 T: 31 QT: 435 QTc: 562 Interpretive Statements A- sensed, V paced rhythm ELECTRONIC VENTRICULAR PACEMAKER ABNORMAL RHYTHM ECG Compared to ECG 03/31/2023 05:59:58 No significant changes Electronically Signed On 10-07-2024 21:19:25 CDT by Timbo Linares M.D. [email or web address] [id number]
--- NOTE | 2024-10-07 16:16 | XRR_ITS ---
PROCEDURE INFORMATION: Exam: XR Chest Exam date and time: 10/07/2024 4:23 PM Age: 54 years old Clinical indication: Pain; Angina pectoris; Additional info: Cp TECHNIQUE: Imaging protocol: Radiologic exam of the chest. Views: 1 view. COMPARISON: CT Up Extremity w LEFT [id number] 05/15/2018 2:05 PM FINDINGS: Lungs: Asymmetric interstitial prominence lobe. Pleural spaces: Unremarkable. No pleural effusion. No pneumothorax. Heart/Mediastinum: Moderate cardiomegaly and mild pulmonary vascular congestion. Bones/joints: Unremarkable. XR/XR chest 1V portable [id number] IMPRESSION: 1. Moderate cardiomegaly and mild pulmonary vascular congestion. 2. Asymmetric interstitial prominence in the left upper lobe which can be seen atypical pneumonia asymmetric pulmonary edema.
[2024-10-07 16:52] LABS: Basophils # 0.1 10^3/uL (0.0-0.1); Basophils % 0.5 %; Eosinophils % 0.4 %; Hematocrit 46.7 % (37-53); Lymphocytes # 1.4 10^3/uL (0.8-4.8); Lymphocytes % 14.5 %; Mean Corpuscular HGB Conc 31.7 g/dL (30-55); Mean Corpuscular Volume 100.9 fl (82-101); Mean Platelet Volume 10.1 fL (7.4-10.4); Monocytes # 0.8 10^3/uL (0.2-0.9); Monocytes % 8.3 %; Neutrophils # 7.55 10^3/uL (1.8-7.7); Neutrophils % 75.9 %; Nucleated Red Blood Cells % 0 %; Platelet Count 143 10^3/cmm (157-399); Red Blood Count 4.63 10^6/uL (3.85-5.65); Red Cell Distribution Width 15.3 % (12.1-15.1); White Blood Count 9.95 10^3/uL (3.29-11.43)
[2024-10-07 17:25] LABS: Troponin(5th) Baseline 35 ng/L (0-15)
[2024-10-07 17:34] LABS: Alanine Aminotransferase 67 U/L (0-41); Albumin Level 3.6 g/dL (3.5-5.2); Alkaline Phosphatase 160 U/L (40-130); Anion Gap 17.3 (5-19); Aspartate Amino Transferase 43 U/L (0-40); Blood Urea Nitrogen 22 mg/dL (6-20); Calcium 8.8 mg/dL (8.5-10.5); Carbon Dioxide 26 mmol/L (22-29); Chloride 104 mmol/L (98-107); Creatinine Clr Calc Pharmacy 83.0094; Globulin 2.5 g/dL (1.3-4.6); Glomerular Filtration Rate 57.3 mL/min (90-130); Glucose 87 mg/dL (65-115); NT Pro B Type Natriuretic Pept 5451 pg/mL (0-125); Osmolality Calculated 299 mOsm/kg (285-295); Potassium 4.3 mmol/L (3.5-5.1); Sodium 143 mmol/L (136-145); Total Bilirubin 0.9 mg/dL (0.15-1.2); Total Protein 6.1 g/dL (6.6-8.7)
--- NOTE | 2024-10-07 17:48 | ECG_ITS ---
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 Measurements Intervals [place] Rate: 98 P: 66 CO: 170 QRS: 210 QRSD: 174 T: 45 QT: 485 QTc: 619 Interpretive Statements ATRIAL-SENSED VENTRICULAR-PACED COMPLEXES, LV pacing ELECTRONIC VENTRICULAR PACEMAKER ABNORMAL RHYTHM ECG Compared to ECG 10/07/2024 15:03:45 No significant changes Electronically Signed On 10-08-2024 08:42:04 CDT by Timbo Linares M.D. [id number]
--- NOTE | 2024-10-07 17:57 | ED_ITS ---
HPI - Chest Pain 2 General: Chief Complaint: Chest Pain Stated Complaint: sob, chest tightness Time Seen by Provider: 10/07/24 17:46 History of Present Illness: 54-year-old male with past medical histo ry of A-fib, pacemaker is presenting with 2 weeks of progressively worsening dyspnea on exertion bilateral lower extremity edema, chest tightness orthopnea. He has been compliant with his Lasix but has run out of his metoprolol and his some lisinopril recently. He denies any significant chest pain of the chest at this. Denies any fever or chills. He feels like he is fluid overloaded. Associated symptoms: Reports dyspnea and palpitations; Deny abdominal pain, fever(s), nausea, syncope or vomiting Related Data Previous Rx's ?Medication ?Instructions ?Recorded trazodone 100 mg tablet See Rx Instructions .Route 0 03/14/23 .COMPLEX #30 tabs amiodarone 200 mg tablet 200 mg PO DAILY #90 tabs 07/11 eplerenone 50 mg tablet (Inspra) 50 mg PO DAILY #90 ta bs 11/26/23 meloxicam 15 mg tablet 15 mg PO DAILY #30 tabs 06/18 09/09 furosemide 20 mg tablet (Lasix) 20 mg PO DAILY PRN ricardo ght gain #60 09/05/24 tabs metoprolol succinate 100 mg 100 mg PO DAILY #90 tabs 0 09/09/24 tablet,extended release 24 hr valsartan 160 mg tablet 160 mg PO BID #180 tabs 09/16 11/09 Allergies Allergy/AdvReac Type Severity Reaction Status Date / Time No Known Allergies Allergy Verified 06/23/24 11:02 Review of Systems 2 Const: Denies: fever(s), chills or body aches Eyes: Denies: change in vision or blurry vision ENMT: Denies: throat pain or uvular edema Card: Reports: palpitations, edema, swelling of feet/ankles, dyspnea on exertion and orthopnea; Denies: lightheadedness, syncope or pre-syncope Resp: Reports: dyspnea and productive cough; Denies: wheezing, stridor, pain on inspiration or hemoptysis GI: Denies: abdominal pain, nausea, vomiting or diarrhea : Denies: flank pain or difficulty urinating Musc: Reports: extremity swelling; Denies: neck pain or back pain Skin/Breast: Denies: rash Neuro: Denies: headache(s) PFSH ED 2 PFSH: Medical History Cardiac resynchronization therapy defibrillator (KNITTED CLOTH EXAMINER-D) in place ICD (implantable cardioverter-defibrillator) battery depletion Systolic CHF with reduced left ventricular function, NYHA class 2 Cardiomyopathy Malignant hypertension Essential hypertension Surgical History Status post correction of deviated nasal septum Family History Other CAD (coronary artery disease) Denies family history of Diabetes Cancer Hypertension Social History Smoking and tobacco/nicotine status: former use of tobacco/nicotine Alcohol intake: current Alcohol intake frequency: holidays/special occasions only Substance/Drug Use: never Physical Exam 2 Const: COMMON NORMALS: patient oriented x3 and alert HENMT: COMMON NORMALS: normocephalic and atraumatic HEAD & SCALP: n ormocephalic and atraumatic THROAT: no uvular edema Eye: COMMON NORMALS: Equal, round and reactive pupils present, conjunctivae normal and no scleral icterus CONJUNCTIVA: Yes conjunctivae normal PUPIL: Yes Equal, round and reactive pupils present Neck/C-Spine: COMMON NORMALS: full ROM and supple Resp: OTHER: Bibasilar rales otherwise anteriorly clear no wheezing, mildly labored breathing but no acute respiratory distress. Cardio: COMMON NORMALS: regular rate, regular rhythm and Peripheral pulses 2+ throughout RATE: regular rate RHYTHM: regular rhythm PERIPHERAL PULSES: Peripheral pulses 2+ throughout GI: COMMON NORMALS: Normal to inspection, nondistended, normoactive bowel sounds present, Soft to palpation and non-tender PALPATION: Yes Soft to palpation : COMMON NORMALS: Yes no CVA tenderness BLADDER/KIDNEY EXAM: Yes no CVA tenderness Back/Pelvis: COMMON NORMALS: no CVA tenderness Extremity: NARRATIVE EXTREMITY EXAM: 3+ pitting edema bilaterally Neuro: COMMON NORMALS: patient oriented x3 SENSORIUM/ORIENTATION: Yes alert Course 2 Vital Signs: Vital signs: Vital Signs Temperature 98.4 F 10/07/24 15:01 Pulse Rate 98 10/07/24 15:01 Respiratory Rate 22 H 10/07/24 15:01 Blood Pressure 128/89 10/07/24 15:01 Pulse Oximetry 92 10/07/24 15:01 Oxygen Delivery Me thod Room Air 10/07/24 15:01 MDM - Chest Pain Medical Decision Making Patient symptoms are likely secondary to acute CHF and fluid overloaded as evidenced by his clinical exam pitting edema and dyspnea orthopnea as well as chest x-ray demonstrates pulmonary edema and cardiomegaly. His EKG demonstrates paced rhythm at [address] changes. Patient denies any chest pain at this time. His proBNP is 5000. Plan to administer Lasix 40 mg IV. And plan for inpatient admission, patient agrees. Case discussed with the hospitalist Dr. Martin who agrees with t acceptance to cardiac stepdown. Lab Data 10/07/24 16:41 10/07/24 16:41 Radiology Impressions Chest X-Ray 10/07/24 16:16 IMPRESSION: 1. Moderate cardiomegaly and mild pulmonary vascular congestion. 2. Asymmetric interstitial prominence in the left upper lobe which can be seen atypical pneumonia asymmetric pulmonary edema. Laboratory Results WBC 9.95 10^3/uL (3.29-11.43) 10/07/24 16:41 RBC 4.63 10^6/uL (3.85-5.65) 10/07/24 16:41 Hgb 14.80 g/dL (11.27-16.99) 10/07/24 16:41 Hct 46.7 % (37-53) 10/07/24 16:41 MCV 100.9 fl (82-101) 10/07/24 16:41 MCH 32.0 pg (27-33) 10/07/24 16:41 MCHC 31.7 g/dL (30-55) 10/07/24 16:41 RDW 15.3 % (12.1-15.1) H 10/07/24 16:41 Plt Count 143 10^3/cmm (157-399) L 10/07/24 16:41 MPV 10.1 fL (7.4-10.4) 10/07/24 16:41 Neut % (Auto) 75.9 % 10/07/24 16:41 Lymph % (Auto) 14.5 % 10/07/24 16:41 [place] % (Auto) 8.3 % 10/07/24 16:41 Eos % (Auto) 0.4 % 10/07/24 16:41 Baso % (Auto) 0.5 % 10/07/24 16:41 Neut # (Auto) 7.55 10^3/uL (1.8-7.7) 10/07/24 16:41 Lymph # (Auto) 1.4 10^3/uL (0.8-4.8) 10/07/24 16:41 [place] # (Auto) 0.8 10^3/uL (0.2-0.9) 10/07/24 16:41 Eos # (Auto) 0.0 10^3/uL (0.0-0.8) 10/07/24 16:41 Baso # (Auto) 0.1 10^3/uL (0.0-0.1) 10/07/24 16:41 Nucleated RBC % (auto) 0 % 10/07/24 16:41 Nucleated RBCs # 0.0 /100WBC 10/07/24 16:41 Sodium 143 mmol/L (136-145) 10/07/24 16:41 Potassium 4.3 mmol/L (3.5-5.1) 10/07/24 16:41 Chloride 104 mmol/L (98-107) 10/07/24 16:41 Carbon Dioxide 26 mmol/L (22-29) 10/07/24 16:41 Anion Gap 17.3 (5-19) 10/07/24 16:41 BUN 22 mg/dL (6-20) H 10/07/24 16:41 Creatinine 1.3 mg/dL (0.7-1.2) H 10/07/24 16:41 GFR Calculation 57.3 mL/min (90-130) L 10/07/24 16:41 Glucose 87 mg/dL (65-115) 10/07/24 16:41 Calculated Osmolality 299 mOsm/kg (285-295) H 10/07/24 16:41 Calcium 8.8 mg/dL (8.5-10.5) 10/07/24 16:41 Total Bilirubin 0.9 mg/dL (0.15-1.2) 10/07/24 16:41 AST 43 U/L (0-40) H 10/07/24 16:41 ALT 67 U/L (0-41) H 10/07/24 16:41 Alkaline Phosphatase 160 U/L (40-130) H 10/07/24 16:41 Troponin T Baseline 35 ng/L (0-15) H 10/07/24 16:41 NT-Pro-B Natriuret Pep 5451 pg/mL (0-125) H 10/07/24 16:41 Total Protein 6.1 g/dL (6.6-8.7) L 10/07/24 16:41 Albumin 3.6 g/dL (3.5-5.2) 10/07/24 16:41 Globulin 2.5 g/dL (1.3-4.6) 10/07/24 16:41 All radiology interpretation(s) finalized by discharge Discharge Plan Discharge Patient Disposition: Admitted As Inpatient Clinical Impression: Acute CHF Condition: Stable Coding Level of Care Code ED Customer Support Professional for Yasmeen Trevino
--- NOTE | 2024-10-07 18:34 | P.HP_ITS ---
Providers/Chief Complaint 2 Admitting Physician: Debi Martin MD Chief Complaint: sob, chest tightness History of Present Illness Gwendolyn Keith is a 54 year old male with past medical history of systolic congestive heart failure with reduced EF, cardiomyopathy, malignant hypertension, ICD, cardiac resynchronization therapy defibrillator presented with complaint of worsening shortness of breath since few weeks. As per the patient he has been having worsening shortness of breath associated with chest discomfort, abdominal swelling and bilateral lower extremity edema. He has been unable to ambulate and # shortness of breath on exertion, and orthopnea. Denies any history of recent fever, cough, cold, palpitations, chest pain, dizziness, nausea/vomiting, diarrhea or urinary complaints. Denies any history of sick contact or recent travel. He lives alone and has been able to do his ADLs. 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 He has been taking p.o. Lasix 20 mg as needed but with no relief. He follows up with Dr. Linares, cardiology as outpatient, last visit was March 2024. Review of Systems 2 General: Reports: 10 or more systems reviewed and unremarkable except in HPI and below Medications/Allergies Home Medications ?Medication ?Instructions ?Recorded ?Confirmed ?Last Taken ?Type trazodone 100 mg tablet See Rx Instructions .Route 0 03/14/23 06/23/24 Unknown Rx .COMPLEX #30 tabs amiodarone 200 mg tablet 200 mg PO DAILY #90 tabs 07/1106/23/24 Unknown Rx eplerenone 50 mg tablet (Inspra) 50 mg PO DAILY #90 ta bs 11/26/23 06/23/24 Unknown Rx meloxicam 15 mg tablet 15 mg PO DAILY #30 tabs 06/18 09/09 Unknown Rx furosemide 20 mg tablet (Lasix) 20 mg PO DAILY PRN ricardo ght gain #60 09/05/24 Unknown Rx tabs metoprolol succinate 100 mg 100 mg PO DAILY #90 tabs 0 09/09/24 Unknown Rx tablet,extended release 24 hr valsartan 160 mg tablet 160 mg PO BID #180 tabs 09/16 11/09 Unknown Rx Allergies Allergy/AdvReac Type Severity Reaction Status Date / Time No Known Allergies Allergy Verified 06/23/24 11:02 PFSH Acute 2 PFSH: Medical History Cardiac resynchronization therapy defibrillator (LIMEHOUSE WORKER-D) in place ICD (implantable cardioverter-defibrillator) battery depletion Systolic CHF with reduced left ventricular function, NYHA class 2 Cardiomyopathy Malignant hypertension Essential hypertension Surgical History Status post correction of deviated nasal septum Family History Other CAD (coronary artery disease) Denies family history of Diabetes Cancer Hypertension Social History Smoking and tobacco/nicotine status: former use of tobacco/nicotine Alcohol intake: current Alcohol intake frequency: holidays/special occasions only Substance/Drug Use: never Vitals/I&O/Wt Last Vital Signs Temp 98.4 F 10/07/24 15:01 Pulse 103 H 10/07/24 18:11 Resp 28 H 10/07/24 18:11 BP 135/99 10/07/24 18:11 Pulse Ox 93 10/07/24 18:11 O2 Del Method Room Air 10/07/24 15:01 Weight last 48 hrs Weight 122.47 kg Physical Exam 2 Narrative: He is alert awake oriented x 3, morbidly obese, in moderate respiratory distress Chest bilateral fine crackles present anteriorly and posteriorly Cardiovascular normal heart sounds no murmurs Abdomen soft distended nontender normal bowel sounds Extremities bilateral 4+ pitting edema present lower extremities Data 10/07/24 16:41 10/07/24 16:41 A&P Assessment and plan (1) Acute on chronic systolic heart failure: (2) Obesity, Class II, BMI 35-39.9: (3) Benign essential HTN: (4) Cardiac resynchronization therapy defibrillator (LIMEHOUSE WORKER-D) in place: (5) Atrial fibrillation: Qualifiers: Atrial fibrillation type: paroxysmal Qualified Code(s): I48.0 - Paroxysmal atrial fibrillation (6) Systolic CHF with reduced left ventricular function, NYHA class 2: (7) Cardiomyopathy: Qualifiers: Cardiomyopathy type: dilated Qualified Code(s): I42.0 - Dilated cardiomyopathy (8) Malignant hypertension: (9) Sleep apnea: Plan Gwendolyn Keith is a 54 year old male with past medical history of systolic congestive heart failure with reduced EF, cardiomyopathy, malignant hypertension, ICD, cardiac resynchronization therapy defibrillator presented with complaint of worsening shortness of breath on exertion and at rest since few weeks, associated with chest discomfort, abdominal swelling and bilateral lower extremity edema, inability to walk likely secondary to acute congestive heart failure In ER received IV Lasix 40 mg x 1 Creatinine 1.3 Mildly elevated LFTs proBNP 5451 Chest x-ray showed IMPRESSION: 1. Moderate cardiomegaly and mild pulmonary vascular congestion. 2. Asymmetric interstitial prominence in the left upper lobe which can be seen atypical pneumonia asymmetric pulmonary edema. Acute systolic and diastolic congestive heart failure with reduced EF- Admit to CSU Rule out ACS First set of troponin 35, follow-up 2-hour and 6-hour troponins EKG showed paced rhythm at [address], [address]-T changes Will do IV Lasix 40 mg 3 times daily Monitor electrolytes and replace appropriately Monitor renal function Strict I's and O's Daily weight Fluid restriction to 1.5 L/day Will continue CODE ENFORCEMENT INSPECTOR metoprolol, eplerenone and amiodarone Will check echo Last 2D echo 08/10 CONCLUSIONS No intracardiac masses or vegetations Dilated left ventricle with severe diffuse hypokinesia. Ejection fraction around 25%. Normal RV size with a slightly diminished ejection fraction. Biatrial enlargement,L>R Mild-moderate mitral valve regurgitation. Left atrial appendage is of normal size with diminished contractility. Minimal plaques or intimal thickening in the aorta Acute renal failure-creatinine 1.3 Likely prerenal Will monitor renal functions while on IV Lasix SHAMA- CPAP at night GI prophylaxis with IV Pepcid twice daily DVT prophylaxis with subcutaneous heparin CODE STATUS discussed with patient, he is full code for now PDMP PDMP Reviewed: Not Reviewed Attestations 2 Medical Necessity Statement*: He needs continued hospitalization crossing 2 midnights for management of acute on chronic congestive heart failure, acute renal failure, with IV Lasix, monitoring of I's and O's, 2D echo and supportive care Time Spent in Patient Care: 45 minutes Coding Level of Care Code Acute Code for Chg Fwd Diagnoses Acute on chronic systolic heart failure I50.23 Obesity, Class II, BMI 35-39.9 E66.9 Benign essential HTN I10 Cardiac resynchronization therapy defibrillator (LIMEHOUSE WORKER-D) in place Z95.810 Paroxysmal atrial fibrillation I48.0 Atrial fibrillation type: paroxysmal Systolic CHF with reduced left ventricular function, NYHA class 2 I50.20 Dilated cardiomyopathy I42.0 Cardiomyopathy type: dilated Malignant hypertension I10 Sleep apnea G47.30 Time Spent (min) 45
--- NOTE | 2024-10-07 18:48 | USCV_ITS ---
Gwendolyn Keith Age: 54 Gender: M : 1970 Exam Date: 10/07/2024 19:14 Ordering Phys: Debi Martin MD Technologist: DONYA Exam Location: [facility] [place] Indication: increasing SOB, Hx CHF, ischemic CM, malignant HTN, ICD 2016, BLE edema. BP: 135 / 99 HR: 95 Rhythm: Paced rhythm with Atrial fibrillation Technical Quality: Adequate with OPTISON MEASUREMENTS (Male / Female) Normal Values 2D ECHO LV Diastolic Diameter PLAX 6.9 cm 4.2 - 5.9 / 3.9 - 5.3 cm LV Systolic Diameter PLAX 6.5 cm IVS Diastolic Thickness 1.5 cm 0.6 - 1.0 / 0.6 - 0.9 cm IVS Systolic Thickness 1.4 cm LVPW Diastolic Thickness 1.6 cm 0.6 - 1.0 / 0.6 - 0.9 cm LVPW Systolic Thickness 1.8 cm LVOT Diameter 2.5 cm LV Ejection Fraction 2D Teich 14.1 % LV Ejection Fraction MOD 4C 11.8 % LV Ejection Fraction MOD 2C 2.0 % LV Ejection Fraction 2C AL 3.3 % LA Diameter 5.3 cm LA Sys Volume AL 194.1 cm cubed LA Sys Volume Index AL 77.7 cm cubed/m squared Aorta at Sinotubular Diameter 3.1 cm IVC Diameter 3.2 cm M-MODE LA Ao Ratio MM 1.6 AV Cusp Separation MM 2.4 cm DOPPLER AV Peak Velocity 112.0 cm/s LVOT Peak Velocity 62.0 cm/s AV Area Cont Eq vti 2.6 cm squared AV Area Cont Eq pk 2.7 cm squared MV Peak Velocity 145.0 cm/s MV Area PHT 6.7 cm squared Mitral E to A Ratio 0.0 TV Peak Velocity 323.0 cm/s TR Peak Velocity 339.0 cm/s TR Peak Gradient 46.0 mmHg TV Peak E Velocity 101.0 cm/s PV Peak Velocity 89.0 cm/s FINDINGS Left Ventricle Moderately increased left ventricular cavity size. Severely decreased left ventricular systolic function. Left ventricular ejection fraction is estimated at 15 %. Grade III/IV diastolic dysfunction (restrictive filling pattern), severely elevated filling pressures. Right Ventricle Catheter/pacemaker wire visualized in the right ventricle. Right Atrium Catheter/pacemaker wire in the right atrial cavity. Left Atrium The left atrium is normal in size. Mitral Valve Moderately thickened mitral valve. Mild mitral annular calcification. No mitral valve stenosis. Mild-moderate mitral valve regurgitation. Aortic Valve Moderate aortic valve calcification. No aortic valve stenosis. Trace aortic valve regurgitation. Tricuspid Valve [id number] tricuspid valve regurgitation. Pulmonic Valve Structurally normal pulmonic valve without significant stenosis. There is no pulmonic regurgitation. Pericardium Normal pericardium without effusion. Aorta Normal ascending aorta dimension. IVC Dilated IVC with decreased respiratory variation. CONCLUSIONS Moderately increased left ventricular cavity size. Severely decreased left ventricular systolic function. Left ventricular ejection fraction is estimated at 15 %. Grade III/IV diastolic dysfunction (restrictive filling pattern), severely elevated filling pressures. Catheter/pacemaker wire visualized in the right ventricle. Moderately thickened mitral valve. Mild mitral annular calcification. No mitral valve stenosis. Mild-moderate mitral valve regurgitation. Moderate aortic valve calcification. No aortic valve stenosis. Trace aortic valve regurgitation. Sxeo-om-zoszuzai tricuspid valve regurgitation. There is no pericardial effusion. Right atrial pressure is around 20 mm of mercury. Cali Samson MD (Electronically Signed) Final Date: 08 October 2024 12:57 S
[2024-10-07 18:55] LABS: Troponin 5 2HR 37.99 ng/L (0-15); Troponin 5 2HR Delta 2.99 ABS# (0-10)
[2024-10-07] MEDS: FUROsemide 10 mg/mL SDV 4mL 40 MG IVP ×2 (19:02→20:58)
[2024-10-07] MEDS: heparin 5,000 unit/mL INJ 1 mL 5000 UNIT SUBCUT (20:49)
[2024-10-07] MEDS: famotidine 20 mg/2 mL INJ IVP (20:49)
--- NOTE | 2024-10-07 21:41 | ECG_ITS ---
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 Measurements Intervals Lynch Rate: 101 P: 72 IA: 144 QRS: 253 QRSD: 178 T: 73 QT: 436 QTc: 565 Interpretive Statements ATRIAL-SENSED VENTRICULAR-PACED COMPLEXES, seems to be LV pacing ELECTRONIC VENTRICULAR PACEMAKER ABNORMAL RHYTHM ECG Compared to ECG 10/07/2024 17:48:41 No significant changes Check the RV lead function Electronically Signed On 10-08-2024 08:41:02 CDT by Timbo Linares M.D. [email or web address]
[2024-10-07 23:00] LABS: Troponin 5 6HR 32.48 ng/L (0-15)
[2024-10-07 23:01] LABS: Troponin 5 6HR Delta -2.52 ng/L (0-12)
[2024-10-08 04:00] VITALS: BP 122/84; PULSE 86; RESP 23; TEMP 37.1; O2SAT 91
[2024-10-08] MEDS: heparin 5,000 unit/mL INJ 1 mL 5000 UNIT SUBCUT ×3 (04:13→20:17)
[2024-10-08] MEDS: FUROsemide 10 mg/mL SDV 4mL 40 MG IVP (04:13)
[2024-10-08 05:28] VITALS: PULSE 97
[2024-10-08] MEDS: perflutren protein-a microsphr 0.22 mg/mL SDV 3 mL IV (05:41)
[2024-10-08 06:34] LABS: Basophils # 0.1 10^3/uL (0.0-0.1); Basophils % 0.8 %; Eosinophils # 0.1 10^3/uL (0.0-0.8); Eosinophils % 1.5 %; Hematocrit 48.4 % (37-53); Lymphocytes # 2.5 10^3/uL (0.8-4.8); Lymphocytes % 27.3 %; Mean Corpuscular Hemoglobin 31.9 pg (27-33); Mean Corpuscular Volume 99.6 fl (82-101); Mean Platelet Volume 10.5 fL (7.4-10.4); Monocytes # 0.8 10^3/uL (0.2-0.9); Monocytes % 9.2 %; Neutrophils # 5.52 10^3/uL (1.8-7.7); Neutrophils % 60.5 %; Nucleated Red Blood Cells % 0 %; Platelet Count 169 10^3/cmm (157-399); Red Blood Count 4.86 10^6/uL (3.85-5.65); Red Cell Distribution Width 15.2 % (12.1-15.1); White Blood Count 9.12 10^3/uL (3.29-11.43)
[2024-10-08 06:58] LABS: Chol HDL Ratio 3.13 mg/dL (1.0-5.00); Cholesterol 125 mg/dL (0-200); HDL Cholesterol 40 mg/dL (60-100); LDL Cholesterol Calculated 66 mg/dL (50-129); LDL HDL Ratio 1.65 RATIO (0.00-3.22); Triglycerides 96 mg/dL (0-150)
[2024-10-08 07:02] LABS: Alanine Aminotransferase 65 U/L (0-41); Albumin Level 3.4 g/dL (3.5-5.2); Alkaline Phosphatase 168 U/L (40-130); Anion Gap 17.5 (5-19); Aspartate Amino Transferase 42 U/L (0-40); Blood Urea Nitrogen 22 mg/dL (6-20); Carbon Dioxide 27 mmol/L (22-29); Chloride 101 mmol/L (98-107); Creatinine Clr Calc Pharmacy 73.2124; Globulin 3.1 g/dL (1.3-4.6); Glomerular Filtration Rate 48.6 mL/min (90-130); Glucose 102 mg/dL (65-115); Magnesium 1.7 mg/dL (1.7-2.3); Osmolality Calculated 298 mOsm/kg (285-295); Potassium 3.5 mmol/L (3.5-5.1); Sodium 142 mmol/L (136-145); Thyroid Stimulating Hormone 1.85 uIU/mL (0.27-4.20); Total Protein 6.5 g/dL (6.6-8.7)
[2024-10-08 07:28] VITALS: BP 119/80; PULSE 84; RESP 16; TEMP 36.6; O2SAT 92
[2024-10-08] MEDS: famotidine 20 mg/2 mL INJ IVP ×2 (08:07→20:17)
[2024-10-08] MEDS: amiodarone 200 mg Tablet PO (08:08)
[2024-10-08] MEDS: bumetanide 0.25 mg/mL SDV 10 mL 2 MG IVP ×2 (08:08→20:17)
[2024-10-08] MEDS: metoprolol succinate ER (24 HR) 100 mg Tablet PO (08:08)
--- NOTE | 2024-10-08 08:57 | PC.CHAP ---
Pastoral Care Encounter/Spiritual Assessment Type of Contact [] Declined sql developer dba visit [] Patient/Family/Request visit [] Outpatient visit [] Follow-up visit [] Physician referral [] Code/Alert [] Routine visit [] Staff referral [] Actively dying [] Patient sleeping [] Family support [] [] Out of room [] Palliative care [] [x] Receiving care in room [] Pre-surgical visit [] Trauma [] Long length of stay [] ICU visit [] Other: Relational/Emotional Strength [] Patient feels connected with others/family/visitors/staff [] Distress [] Loneliness/isolation [] Abandonment Spirituality of Patient [] Person of Belkis [] Attends Shinto of their Belkis [] Believes in Prayer [] Reads Bible or Denominational materials [] There are Spiritual issues to be addressed Message Clerk Interventions [] Prayer [] Active listening [] Non-anxious presence [] Spiritual/emotional support [] Crisis/trauma care [] Spiritual counseling [] Bereavement support [] Provided bereavement packet [] Provided Bible/devotional materials [] Provided toy/stuffed animal, coloring book to patient or family member [] Provided Communion [] Anointing/Crescent [] Salvation [] Completed spiritual assessment [] Other: Impact on Illness or Injury [] Angry [] Fearful [] Anxious [] Often cries [] Exhaustion [] Unable to work [] Unable to attend mosque [] Unable to walk/stand [] Unable to read [] Unable to drive [] Unable to eat/drink [] Unable to sleep [] Unable to be with family [] Patient intubated [] Other: Summary Time spent with patient
[2024-10-08] MEDS: ALPRAZolam 0.5 mg Tablet PO (09:49)
--- NOTE | 2024-10-08 10:24 | PC.NURSE ---
Provider order for a willett catheter to be placed and for xanax 0.5mg once.
--- NOTE | 2024-10-08 12:47 | P.PN_ITS ---
Subjective 2 Subjective: No acute overnight events noted. Seen him at bedside this morning, seems upset about not had dinner last night and was not able to sleep. No new complaints noted. Medications: Reviewed: Yes Vitals/I&O/Wt Last Vital Signs Temp 97.9 F 10/08/24 07:28 Pulse 84 10/08/24 07:28 Resp 16 10/08/24 07:28 BP 119/80 10/08/24 07:28 Pulse Ox 92 10/08/24 07:28 O2 Del Method CPAP 10/08/24 07:28 10/07/24 10/08/24 10/08/24 22:59 06:59 14:59 Intake Total 200 / 200 450 / 650 720 / 720 Balance 200 / 200 450 / 650 720 / 720 Weight last 48 hrs Weight 126.507 kg Weight 122.47 kg Weight 122.47 kg Physical Exam 2 Narrative: He is alert awake oriented x 3, morbidly obese, in moderate respiratory distress Chest bilateral fine crackles present anteriorly and posteriorly Cardiovascular normal heart sounds no murmurs Abdomen soft distended nontender normal bowel sounds Extremities bilateral 4+ pitting edema present lower extremities Data 10/08/24 06:07 10/08/24 06:07 A&P Assessment and plan (1) Acute on chronic systolic heart failure: (2) Obesity, Class II, BMI 35-39.9: (3) Benign essential HTN: (4) Cardiac resynchronization therapy defibrillator (SOLAR MECHANICAL ENGINEER-D) in place: (5) Atrial fibrillation: Qualifiers: Atrial fibrillation type: paroxysmal Qualified Code(s): I48.0 - Paroxysmal atrial fibrillation (6) Systolic CHF with reduced left ventricular function, NYHA class 2: (7) Cardiomyopathy: Qualifiers: Cardiomyopathy type: dilated Qualified Code(s): I42.0 - Dilated cardiomyopathy (8) Malignant hypertension: (9) Sleep apnea: Plan Gwendolyn Keith is a 54 year old male with past medical history of systolic congestive heart failure with reduced EF, cardiomyopathy, malignant hypertension, ICD, cardiac resynchronization therapy defibrillator presented with complaint of worsening shortness of breath on exertion and at rest since few weeks, associated with chest discomfort, abdominal swelling and bilateral lower extremity edema, inability to walk likely secondary to acute congestive heart failure In ER received IV Lasix 40 mg x 1 Creatinine 1.3 Mildly elevated LFTs proBNP 5451 Chest x-ray showed IMPRESSION: 1. Moderate cardiomegaly and mild pulmonary vascular congestion. 2. Asymmetric interstitial prominence in the left upper lobe which can be seen atypical pneumonia asymmetric pulmonary edema. 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 Ejection fraction around 25%. Normal RV size with a slightly diminished ejection fraction. Biatrial enlargement,L>R Mild-moderate mitral valve regurgitation. Left atrial appendage is of normal size with diminished contractility. Minimal plaques or intimal thickening in the aorta (2)Acute renal failure-creatinine 1.3 Likely prerenal Will monitor renal functions while on IV Lasix (3)SHAMA- CPAP at night GI prophylaxis with IV Pepcid twice daily DVT prophylaxis with subcutaneous heparin CODE STATUS discussed with patient, he is full code for now #10/08/24 Being currently managed for acute systolic and diastolic congestive heart failure with reduced EF, SIERRA Creatinine trending up from 1.3-1.5. 3 sets of troponins 35, 37, 32 Will change IV Lasix to IV Bumex 2 mg twice daily. Monitor I's and O's. P.o. Xanax 0.5 mg x 1 now. Will start on p.o. melatonin 3 mg at bedtime for insomnia. Will follow-up labs in a.m. and if creatinine trending up, probably would need nephrology consult for fluid overload and SIERRA. Potassium 3.5, magnesium 1.7. Will replace appropriately.. Will follow-up 2D echo. Continue to monitor in CSU PDMP PDMP Reviewed: Not Reviewed Attestations 2 Medical Necessity Statement*: He needs continued hospitalization crossing 2 midnights for management of acute on chronic congestive heart failure, acute renal failure, with IV bumex, monitoring of I's and O's, 2D echo and supportive care Time Spent in Patient Care: 20 minutes Coding Level of Care Code Acute Code for Chg Fwd Diagnoses Acute on chronic systolic heart failure I50.23 Obesity, Class II, BMI 35-39.9 E66.9 Benign essential HTN I10 Cardiac resynchronization therapy defibrillator (SOLAR MECHANICAL ENGINEER-D) in place Z95.810 Paroxysmal atrial fibrillation I48.0 Atrial fibrillation type: paroxysmal Systolic CHF with reduced left ventricular function, NYHA class 2 I50.20 Dilated cardiomyopathy I42.0 Cardiomyopathy type: dilated Malignant hypertension I10 Sleep apnea G47.30 Time Spent (min) 20
[2024-10-08] MEDS: potassium chloride ER 20 mEq Tablet 40 MEQ PO ×2 (13:52→20:17)
[2024-10-08] MEDS: magnesium sulfate premix 1 GM/100 ML PIGGYBACK IV (13:53)
[2024-10-08 16:01] VITALS: BP 126/97; PULSE 83; RESP 16; TEMP 36.3; O2SAT 94
[2024-10-08] MEDS: EPLERENONE 50 MG 1 EACH PO (18:00)
[2024-10-08 20:00] VITALS: BP 121/77; PULSE 79; RESP 15; TEMP 36.4; O2SAT 95
[2024-10-08] MEDS: MELATONIN 3 MG TABLET PO (20:17)
[2024-10-09] VITALS: BP 135/89; PULSE 96; RESP 17; O2SAT 94
[2024-10-09] MEDS: ALPRAZolam 0.5 mg Tablet PO (01:18)
--- NOTE | 2024-10-09 01:45 | PC.NURSE ---
Patient removed willett catheter on his own and is refusing any kind of telemetry and monitoring. Stated that he wanted to sleep, for us to stay out of his room and keep room dark. Dr Alonzo notified of situation, hydromorphone was ordered 0.5 q4hr PRN for pain and is aware that telemetry and monitoring was refused.
--- NOTE | 2024-10-09 01:54 | PC.NURSE ---
Patient woke up and began pulling of telemetry and vital sign monitoring. Contacted Dr. Alonzo and got a one time dose of Xanax 0.5mg PO. Patient then stood up and pulled out willett catheter. Patient was assisted back to bed, blood cleaned off patient and bedding. Slight bleeding still noted, patient not allowing nurse to assess. Patient then put on his own clothing. Patient given PRN Xanax, Dr. Alonzo notified of events. Given PRN Dilaudid 0.5mg IVP Q4 hours for pain. Patient refusing to be placed back on telemetry and stated that he wanted to sleep and for us to stay out of his room.
--- NOTE | 2024-10-09 05:58 | PC.NURSE ---
Patient woke up and attempted to leave unit, began pulling on doors to NPU. Removed patient IV, gave patient AMA form and he refused to sign. He was then escorted off of unit by RN and Security. Dr. Alonzo notified.
--- NOTE | 2024-10-10 13:50 | PM.MISC ---
Miscellaneous Note Purpose of Documentation: AMA Note: Patient left AMA reimbursement coordinator on 10/09/24. He was educated and counselled about benefits and risks of his primary diagnosis by staff, but patient still want to signout AMA.
== END 2024-10-09 06:29 | disposition left against medical advice (07) | DRG 291 ==
LOC: ER 18:05 → CSU 18:18
PROVIDERS: Emergency Medicine; Admitting Provider Internal Medicine; Emergency Provider Emergency Medicine; Visit Provider Internal Medicine
DX: I11.0 Hypertensive heart disease with heart failure (principal); I50.23 Acute on chronic systolic (congestive) heart failure; Z68.41 Body mass index [BMI] 40.0-44.9, adult; N17.9 Acute kidney failure, unspecified; Z53.29 Procedure and treatment not carried out because of patient's decision for other reasons; I48.91 Unspecified atrial fibrillation; Z95.810 Presence of automatic (implantable) cardiac defibrillator; T44.7X6A Underdosing of beta-adrenoreceptor antagonists, initial encounter; Z91.128 Patient's intentional underdosing of medication regimen for other reason; I42.0 Dilated cardiomyopathy; Z87.891 Personal history of nicotine dependence; E66.9 Obesity, unspecified; G47.30 Sleep apnea, unspecified
CPT/HCPCS: 36415; 51702; 71045; 80053; 80061; 83735; 83880; 84443; 84484; 85025; 93005; 94664; 96372; 96374; 96376; 99285; C8929; J1644; J1940; J3475; J3490; J9999

== ENCOUNTER 2024-10-10 14:40 | Inpatient (IN) | payer MEDICARE, SELFPAY ==
[2024-10-10] VITALS (9 sets, daily range): BP systolic 121–142; BP diastolic 69–102; PULSE 94–109; RESP 16–22; TEMP 35.9; O2SAT 91–95
--- NOTE | 2024-10-10 14:57 | XR_ITS ---
WS: [id number] Exam: XR chest 1V portable [id number] Date/Time of Exam: 10/10/2024 3:01 PM Reason For Exam: chest pain Comparison 10/07/2024. There is cardiac enlargement with mild pulmonary vascular congestion. No consolidated infiltrates or pleural effusions. A cardiac pacer is noted over the LEFT chest. Bony structures are intact. 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 XR/XR chest 1V portable [id number] IMPRESSION: 1. Cardiac enlargement with mild pulmonary vascular congestion. No significant change.
--- NOTE | 2024-10-10 15:08 | ED_ITS ---
HPI - SOB/Dyspnea 2 General: Chief Complaint: Shortness of Breath/Dyspnea Stated Complaint: SOB Time Seen by Provider: 10/10/24 14:57 History of Present Illness: HPI Narrative: 54-year-old male left AMA yesterday pres ents to the emergency room complaining of increasing shortness of breath. At home he is not on oxygen but he secured his own source of oxygen supplements as he feels the need. Patient has significant cardiomyopathy with an EF of about 20% and history of atrial fibrillation. He does increase swelling in his legs decreased exercise tolerance worsening orthopnea. Patient left AMA because he felt like he was not getting enough to eat and was getting interrupted and could not sleep enough. He has not been taking his medications at home. Associated symptoms: Reports orthopnea; Deny abdominal pain, chest pain or fever(s) Related Data Previous Rx's ?Medication ?Instructions ?Recorded amiodarone 200 mg tablet 200 mg PO DAILY #90 tabs 07/11 eplerenone 50 mg tablet (Inspra) 50 mg PO DAILY #90 ta bs 11/26/23 meloxicam 15 mg tablet 15 mg PO DAILY #30 tabs 06/18 09/09 furosemide 20 mg tablet (Lasix) 20 mg PO DAILY PRN ricardo ght gain #60 09/05/24 tabs metoprolol succinate 100 mg 100 mg PO DAILY #90 tabs 0 09/09/24 tablet,extended release 24 hr valsartan 160 mg tablet 160 mg PO BID #180 tabs 09/16 11/09 Allergies Allergy/AdvReac Type Severity Reaction Status Date / Time No Known Allergies Allergy Verified 10/10/24 14:53 Review of Systems 2 Const: Denies: fever(s) or chills Card: Reports: edema, swelling of feet/ankles, dyspnea on exertion and orthopnea; Denies: chest pain Resp: Denies: dyspnea GI: Denies: abdominal pain : Denies: dysuria, urinary frequency or urinary urgency Musc: Denies: neck pain or back pain Skin/Breast: Denies: rash PFSH ED 2 PFSH: Medical History Cardiac resynchronization therapy defibrillator (FENCE MAKER-D) in place ICD (implantable cardioverter-defibrillator) battery depletion Systolic CHF with reduced left ventricular function, NYHA class 2 Cardiomyopathy Malignant hypertension Essential hypertension Surgical History Status post correction of deviated nasal septum Family History Other CAD (coronary artery disease) Denies family history of Diabetes Cancer Hypertension Social History Smoking and tobacco/nicotine status: former use of tobacco/nicotine Alcohol intake: current Alcohol intake frequency: holidays/special occasions only Substance/Drug Use: never Physical Exam 2 Const: COMMON NORMALS: no acute distress GENERAL APPEARANCE: cooperative and comfortable ORIENTATION/CONSCIOUSNESS: Yes awake, Yes oriented to person, Yes oriented to place and Yes oriented to time HENMT: COMMON NORMALS: normocephalic, atraumatic and hearing grossly normal bilaterally HEAD & SCALP: normocephalic and atraumatic Resp: AUSCULTATION: crackles Cardio: COMMON NORMALS: regular rate, regular rhythm and No murmurs present (Cardio) RATE: regular rate RHYTHM: regular rhythm GI: COMMON NORMALS: Soft to palpation and No hepatosplenomegaly present A USCULTATION: Yes normoactive bowel sounds PALPATION: Yes Soft to palpation, No Tenderness to palpation present (GI), No Guarding due to palpation present (GI) and Yes No hepatosplenomegaly present Extremity: COMMON NORMALS: normal to inspection, capillary refill normal, no clubbing, cyanosis or edema, no calf tenderness and no pedal edema Neuro: SENSORIUM/ORIENTATION: Yes oriented to person, Yes oriented to place and Yes oriented to time Skin: COMMON NORMALS: no rashes or lesions noted GENERAL SKIN EXAM: no rashes or lesions noted Course 2 Vital Signs: Vital signs: Vital Signs Temperature 96.7 F L 10/10/24 14:49 Pulse Rate 107 H 10/10/24 17:47 Respiratory Rate 18 10/10/24 17:47 Blood Pressure 132/69 10/10/24 17:47 Pulse Oximetry 91 10/10/24 17:47 Oxygen Delivery Me thod Nasal Cannula 10/10/24 17:47 Oxygen Flow Rate 2 10/10/24 17:47 MDM - SOB/Dyspnea Medical Decision Making Patient given Lasix in the ER he had significant diuresis he still requiring 4 L by nasal cannula will admit for exacerbation systolic congestive heart failure patient has severe cardiomyopathy. Medical Records I reviewed the patient's medical records. Lab Data I reviewed the patient's lab results. 10/10/24 15:17 10/10/24 15:17 Labs/Radiology: Radiology Impressions Chest X-Ray 10/10/24 14:57 IMPRESSION: 1. Cardiac enlargement with mild pulmonary vascular congestion. No significant change. Laboratory Results WBC 10.41 10^3/uL (3.29-11.43) 10/10/24 15:17 RBC 4.84 10^6/uL (3.85-5.65) 10/10/24 15:17 Hgb 15.40 g/dL (11.27-16.99) 10/10/24 15:17 Hct 48.9 % (37-53) 10/10/24 15:17 MCV 101.0 fl (82-101) 10/10/24 15:17 MCH 31.8 pg (27-33) 10/10/24 15:17 MCHC 31.5 g/dL (30-55) 10/10/24 15:17 RDW 15.0 % (12.1-15.1) 10/10/24 15:17 Plt Count 172 10^3/cmm (157-399) 10/10/24 15:17 MPV 9.9 fL (7.4-10.4) 10/10/24 15:17 Neut % (Auto) 79.8 % 10/10/24 15:17 Lymph % (Auto) 11.7 % 10/10/24 15:17 [place] % (Auto) 6.7 % 10/10/24 15:17 Eos % (Auto) 0.5 % 10/10/24 15:17 Baso % (Auto) 0.7 % 10/10/24 15:17 Neut # (Auto) 8.31 10^3/uL (1.8-7.7) H 10/10/24 15:17 Lymph # (Auto) 1.2 10^3/uL (0.8-4.8) 10/10/24 15:17 [place] # (Auto) 0.7 10^3/uL (0.2-0.9) 10/10/24 15:17 Eos # (Auto) 0.1 10^3/uL (0.0-0.8) 10/10/24 15:17 Baso # (Auto) 0.1 10^3/uL (0.0-0.1) 10/10/24 15:17 Nucleated RBC % (auto) 0 % 10/10/24 15:17 Nucleated RBCs # 0.0 /100WBC 10/10/24 15:17 Sodium 139 mmol/L (136-145) 10/10/24 15:17 Potassium 3.8 mmol/L (3.5-5.1) 10/10/24 15:17 Chloride 103 mmol/L (98-107) 10/10/24 15:17 Carbon Dioxide 22 mmol/L (22-29) 10/10/24 15:17 Anion Gap 17.8 (5-19) 10/10/24 15:17 BUN 19 mg/dL (6-20) 10/10/24 15:17 Creatinine 1.1 mg/dL (0.7-1.2) 10/10/24 15:17 GFR Calculation 69.5 mL/min (90-130) L 10/10/24 15:17 Glucose 131 mg/dL (65-115) H 10/10/24 15:17 Calculated Osmolality 292 mOsm/kg (285-295) 10/10/24 15:17 Calcium 8.5 mg/dL (8.5-10.5) 10/10/24 15:17 Total Bilirubin 0.9 mg/dL (0.15-1.2) 10/10/24 15:17 AST 43 U/L (0-40) H 10/10/24 15:17 ALT 50 U/L (0-41) H 10/10/24 15:17 Alkaline Phosphatase 169 U/L (40-130) H 10/10/24 15:17 Troponin T Baseline 37 ng/L (0-15) H 10/10/24 15:17 Troponin T 120 Minute 39.37 ng/L (0-15) H 10/10/24 17:20 Delta Troponin T 2.37 ABS# (0-10) 10/10/24 17:20 NT-Pro-B Natriuret Pep 3979 pg/mL (0-125) H 10/10/24 15:17 Total Protein 6.6 g/dL (6.6-8.7) 10/10/24 15:17 Albumin 3.4 g/dL (3.5-5.2) L 10/10/24 15:17 Globulin 3.2 g/dL (1.3-4.6) 10/10/24 15:17 All radiology interpretation(s) finalized by discharge Discharge Plan Discharge Patient Disposition: Admitted As Inpatient Clinical Impression: Systolic CHF with reduced left ventricular function, NYHA class 2, Acute on chronic systolic heart failure, Cardiomyopathy Condition: Stable Prescriptions: No Action amiodarone 200 mg tablet 200 mg PO DAILY Qty: 90 2RF eplerenone [Inspra] 50 mg tablet 50 mg PO DAILY Qty: 90 3RF meloxicam 15 mg tablet 15 mg PO DAILY Qty: 30 1RF furosemide [Lasix] 20 mg tablet 20 mg PO DAILY PRN (Reason: weight gain) Qty: 60 0RF Rx Instructions: needs appt for further refills metoprolol succinate 100 mg tablet extended release 24 hr 100 mg PO DAILY Qty: 90 3RF valsartan 160 mg tablet 160 mg PO BID Qty: 180 2RF Print Language: Montenegrin Coding Level of Care Code ED Oceanologist for Yasmeen Trevino
[2024-10-10 15:31] LABS: Basophils # 0.1 10^3/uL (0.0-0.1); Basophils % 0.7 %; Eosinophils # 0.1 10^3/uL (0.0-0.8); Eosinophils % 0.5 %; Hematocrit 48.9 % (37-53); Lymphocytes # 1.2 10^3/uL (0.8-4.8); Lymphocytes % 11.7 %; Mean Corpuscular HGB Conc 31.5 g/dL (30-55); Mean Corpuscular Hemoglobin 31.8 pg (27-33); Mean Platelet Volume 9.9 fL (7.4-10.4); Monocytes # 0.7 10^3/uL (0.2-0.9); Monocytes % 6.7 %; Neutrophils # 8.31 10^3/uL (1.8-7.7); Neutrophils % 79.8 %; Nucleated Red Blood Cells % 0 %; Platelet Count 172 10^3/cmm (157-399); Red Blood Count 4.84 10^6/uL (3.85-5.65); White Blood Count 10.41 10^3/uL (3.29-11.43)
[2024-10-10] MEDS: aspirin 81 mg Chew Tablet 324 MG PO (15:46)
[2024-10-10] MEDS: FUROsemide 10 mg/mL SDV 4mL 40 MG IVP ×2 (15:46→21:03)
[2024-10-10 15:47] LABS: Troponin(5th) Baseline 37 ng/L (0-15)
[2024-10-10 15:54] LABS: Alanine Aminotransferase 50 U/L (0-41); Albumin Level 3.4 g/dL (3.5-5.2); Alkaline Phosphatase 169 U/L (40-130); Anion Gap 17.8 (5-19); Aspartate Amino Transferase 43 U/L (0-40); Blood Urea Nitrogen 19 mg/dL (6-20); Calcium 8.5 mg/dL (8.5-10.5); Carbon Dioxide 22 mmol/L (22-29); Chloride 103 mmol/L (98-107); Creatinine Clr Calc Pharmacy 99.6599; Globulin 3.2 g/dL (1.3-4.6); Glomerular Filtration Rate 69.5 mL/min (90-130); Glucose 131 mg/dL (65-115); NT Pro B Type Natriuretic Pept 3979 pg/mL (0-125); Osmolality Calculated 292 mOsm/kg (285-295); Potassium 3.8 mmol/L (3.5-5.1); Sodium 139 mmol/L (136-145); Total Bilirubin 0.9 mg/dL (0.15-1.2); Total Protein 6.6 g/dL (6.6-8.7)
[2024-10-10 17:45] LABS: Troponin 5 2HR 39.37 ng/L (0-15); Troponin 5 2HR Delta 2.37 ABS# (0-10)
--- NOTE | 2024-10-10 17:47 | PC.NURSE ---
PATIENT RESTING IN BED WITH EVEN AND UNLABORED RESPIRATIONS.
--- NOTE | 2024-10-10 17:54 | P.HP_ITS ---
Providers/Chief Complaint 2 Chief Complaint: SOB History of Present Illness Gwendolyn Keith is a 54 year old male with past medical history of systolic congestive heart failure with reduced EF, cardiomyopathy, malignant hypertension, ICD, cardiac resynchronization therapy defibrillator presented with complaint of worsening shortness of breath. Patient just signed out AMA yesterday and came back today with worsening shortness of breath, and requiring 4 L of oxygen via nasal cannula. He further stated that he did not have oxygen at home and had to take care of his dogs hence he walked out AMA yesterday. Shortness of breath associated with chest discomfort, abdominal swelling and bilateral lower extremity edema. He has been unable to ambulate and # shortness of breath on exertion, and orthopnea. Denies any history of recent fever, cough, cold, palpitations, chest pain, dizziness, nausea/vomiting, diarrhea or urinary complaints. Denies any history of sick contact or recent travel. He lives alone and has been able to do his ADLs. Review of Systems 2 General: Reports: 10 or more systems reviewed and unremarkable except in HPI and below Medications/Allergies Home Medications ?Medication ?Instructions ?Recorded ?Confirmed ?Last Taken ?Type amiodarone 200 mg tablet 200 mg PO DAILY #90 tabs 07/1110/10/24 10/10/24 Rx eplerenone 50 mg tablet (Inspra) 50 mg PO DAILY #90 ta bs 11/26/23 10/10/24 10/10/24 Rx meloxicam 15 mg tablet 15 mg PO DAILY #30 tabs 06/1810/10/24 10/10/24 Rx furosemide 20 mg tablet (Lasix) 20 mg PO DAILY PRN ricardo ght gain #60 09/05/24 10/10/24 10/10/24 Rx tabs metoprolol succinate 100 mg 100 mg PO DAILY #90 tabs 0 09/09/24 10/10/24 10/10/24 Rx tablet,extended release 24 hr valsartan 160 mg tablet 160 mg PO BID #180 tabs 09/1610/10/24 10/10/24 Rx Allergies Allergy/AdvReac Type Severity Reaction Status Date / Time No Known Allergies Allergy Verified 10/10/24 14:53 PFSH Acute 2 PFSH: Medical History Cardiac resynchronization therapy defibrillator (EMBOSSED OR IMPRESSED LETTERING PAINTER-D) in place ICD (implantable cardioverter-defibrillator) battery depletion Systolic CHF with reduced left ventricular function, NYHA class 2 Cardiomyopathy Malignant hypertension Essential hypertension Surgical History Status post correction of deviated nasal septum Family History Other CAD (coronary artery disease) Denies family history of Diabetes Cancer Hypertension Social History Smoking and tobacco/nicotine status: former use of tobacco/nicotine Alcohol intake: current Alcohol intake frequency: holidays/special occasions only Substance/Drug Use: never Vitals/I&O/Wt Last Vital Signs Temp 96.7 F L 10/10/24 14:49 Pulse 107 H 10/10/24 17:47 Resp 18 10/10/24 17:47 BP 132/69 10/10/24 17:47 Pulse Ox 91 10/10/24 17:47 O2 Del Method Nasal Cannula 10/10/24 17:47 O2 Flow Rate 2 10/10/24 17:47 10/10/24 10/10/24 10/10/24 06:59 14:59 22:59 Output Total 825 / 825 Balance -825 / -825 Weight last 48 hrs Weight 126.099 kg Physical Exam 2 Narrative: He is alert awake oriented x 3, morbidly obese, in moderate respiratory distress Chest clear to ascultation b/l Cardiovascular normal heart sounds no murmurs Abdomen soft distended nontender normal bowel sounds Extremities bilateral 4+ pitting edema present lower extremities Data 10/10/24 15:17 10/10/24 15:17 A&P Assessment and plan (1) Acute on chronic systolic heart failure: (2) Benign essential HTN: (3) Obesity, Class II, BMI 35-39.9: (4) Cardiac resynchronization therapy defibrillator (EMBOSSED OR IMPRESSED LETTERING PAINTER-D) in place: (5) Systolic CHF with reduced left ventricular function, NYHA class 2: (6) Cardiomyopathy: Qualifiers: Cardiomyopathy type: dilated Qualified Code(s): I42.0 - Dilated cardiomyopathy (7) Malignant hypertension: (8) SHAMA (obstructive sleep apnea): Plan Gwendolyn Keith is a 54 year old male with past medical history of systolic congestive heart failure with reduced EF, cardiomyopathy, malignant hypertension, ICD, cardiac resynchronization therapy defibrillator presented with complaint of worsening shortness of breath. Patient just signed out AMA yesterday and came back today with worsening shortness of breath, and requiring 4 L of oxygen via nasal cannula. In ER received IV Lasix 40 mg x 1 ASA 325mg x1 Creatinine 1.1 Mildly elevated LFTs proBNP 3979<---5451 troponin 37,39 Chest x-ray showed IMPRESSION: IMPRESSION: 1. Cardiac enlargement with mild pulmonary vascular congestion. No significant change. Acute systolic and diastolic congestive heart failure with reduced EF- Admit to CSU Rule out ACS troponin 37,39, follow up 6-hour trops EKG showed paced rhythm Will do IV Lasix 40 mg 3 times daily Monitor electrolytes and replace appropriately Monitor renal function Strict I's and O's Daily weight Fluid restriction to 1.5 L/day Will continue GRAPHIC DESIGN SPECIALIST metoprolol, eplerenone and amiodarone ECHO 10/07 CONCLUSIONS Moderately increased left ventricular cavity size. Severely decreased left ventricular systolic function. Left ventricular ejection fraction is estimated at 15 % down from 25% in . Grade III/IV diastolic dysfunction (restrictive filling pattern), severely elevated filling pressures. Catheter/pacemaker wire visualized in the right ventricle. Moderately thickened mitral valve. Mild mitral annular calcification. No mitral valve stenosis. Mild-moderate mitral valve regurgitation. Moderate aortic valve calcification. No aortic valve stenosis. Trace aortic valve regurgitation. [id number]-pczdkprr tricuspid valve regurgitation. There is no pericardial effusion. Right atrial pressure is around 20 mm of mercury. SHAMA- CPAP at night GI prophylaxis with IV Pepcid twice daily DVT prophylaxis with subcutaneous heparin CODE STATUS discussed with patient, he is full code for now PDMP PDMP Reviewed: Not Reviewed Attestations 2 Medical Necessity Statement*: He needs continued hospitalization crossing 2 midnights for management of acute on chronic congestive heart failure, acute renal failure, with IV Lasix, monitoring of I's and O's, 2D echo and supportive care Time Spent in Patient Care: 45minutes Coding Level of Care Code Acute Code for Chg Fwd Diagnoses Acute on chronic systolic heart failure I50.23 Benign essential HTN I10 Obesity, Class II, BMI 35-39.9 E66.9 Cardiac resynchronization therapy defibrillator (EMBOSSED OR IMPRESSED LETTERING PAINTER-D) in place Z95.810 Systolic CHF with reduced left ventricular function, NYHA class 2 I50.20 Dilated cardiomyopathy I42.0 Cardiomyopathy type: dilated Malignant hypertension I10 SHAMA (obstructive sleep apnea) G47.33 Time Spent (min) 45
[2024-10-10] MEDS: enoxaparin 40 mg/0.4 mL Syringe SUBCUT (18:39)
[2024-10-10] MEDS: pantoprazole 40 mg SDV IVP (18:39)
--- NOTE | 2024-10-10 19:10 | ECG_ITS ---
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
--- NOTE | 2024-10-10 20:54 | ECG_ITS ---
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
--- NOTE | 2024-10-10 21:15 | PC.NURSE ---
Pt refused willett catheter stating I can use a urinal just fine!
[2024-10-10 21:32] LABS: Amphetamines Screen Urine Negative (Negative); Barbiturates Screen Urine Negative (Negative); Benzodiazepines Screen Urine Negative (Negative); Cocaine Screen Urine Negative (Negative); Opiate Screen Urine Negative (Negative); PCP Screen Urine Negative (Negative); THC Screen Urine Negative (Negative)
[2024-10-10 21:38] LABS: Troponin 5 6HR 34.46 ng/L (0-15)
[2024-10-10 21:40] LABS: Troponin 5 6HR Delta -2.54 ng/L (0-12)
[2024-10-11] VITALS (10 sets, daily range): BP systolic 93–123; BP diastolic 64–94; PULSE 61–99; RESP 14–22; TEMP 36.5–37.1; O2SAT 91–97
[2024-10-11] MEDS: temazepam 15 mg Capsule PO (01:46)
[2024-10-11 05:15] LABS: Basophils # 0.1 10^3/uL (0.0-0.1); Basophils % 0.5 %; Eosinophils # 0.2 10^3/uL (0.0-0.8); Eosinophils % 1.6 %; Hematocrit 50.9 % (37-53); Lymphocytes # 2.7 10^3/uL (0.8-4.8); Lymphocytes % 28.3 %; Mean Corpuscular HGB Conc 31.6 g/dL (30-55); Mean Corpuscular Hemoglobin 31.8 pg (27-33); Mean Corpuscular Volume 100.4 fl (82-101); Mean Platelet Volume 10.1 fL (7.4-10.4); Monocytes % 10.3 %; Neutrophils % 58.8 %; Nucleated Red Blood Cells % 0 %; Platelet Count 167 10^3/cmm (157-399); Red Blood Count 5.07 10^6/uL (3.85-5.65); Red Cell Distribution Width 14.9 % (12.1-15.1); White Blood Count 9.36 10^3/uL (3.29-11.43)
[2024-10-11 05:38] LABS: Anion Gap 16.3 (5-19); Blood Urea Nitrogen 22 mg/dL (6-20); Calcium 8.6 mg/dL (8.5-10.5); Carbon Dioxide 25 mmol/L (22-29); Chloride 103 mmol/L (98-107); Creatinine Clr Calc Pharmacy 79.1151; Glomerular Filtration Rate 52.6 mL/min (90-130); Glucose 85 mg/dL (65-115); Osmolality Calculated 293 mOsm/kg (285-295); Potassium 4.3 mmol/L (3.5-5.1); Sodium 140 mmol/L (136-145)
[2024-10-11] MEDS: LORazepam 0.5 mg Tablet PO ×3 (07:29→20:21)
[2024-10-11] MEDS: amiodarone 200 mg Tablet PO (10:03)
[2024-10-11] MEDS: escitalopram 10 mg Tablet PO (10:03)
[2024-10-11] MEDS: metoprolol succinate ER (24 HR) 100 mg Tablet PO (10:04)
[2024-10-11] MEDS: FUROsemide 10 mg/mL SDV 4mL 40 MG IVP ×4 (10:04→20:21)
--- NOTE | 2024-10-11 14:21 | PC.NURSE ---
Patient's Cane is kept by security staff Nic from security removed pt's cane from pt's room and will be kept in security office until pt gets discharge.
--- NOTE | 2024-10-11 15:06 | PM.PN ---
Subjective Subjective: No acute overnight events noted, was able to sleep for few hours. Still has SOB and orthopnea, sitting on the edge of the bed. Will get him a recliner for resting. Medications: Reviewed: Yes Vitals/I&O/Wt Last Vital Signs Temp 97.7 F 10/11/24 12:00 Pulse 85 10/11/24 12:00 Resp 20 H 10/11/24 12:00 BP 123/94 10/11/24 12:00 Pulse Ox 95 10/11/24 12:00 O2 Del Method Nasal Cannula 10/11/24 12:00 O2 Flow Rate 4 10/11/24 12:00 10/11/24 10/11/24 10/11/24 06:59 14:59 22:59 Intake Total 880 / 880 600 / 600 Output Total 450 / 1685 580 / 580 Balance 430 / -805 20 / Weight last 48 hrs Weight 128.503 kg Weight 128.503 kg Weight 129.773 kg Weight 126.099 kg Physical Exam Narrative: He is alert awake oriented x 3, morbidly obese, in moderate respiratory distress Chest B/L fine crackles present at the bases Cardiovascular normal heart sounds no murmurs Abdomen soft distended nontender normal bowel sounds Extremities bilateral 4+ pitting edema present lower extremities Data 10/11/24 04:47 10/11/24 04:47 A&P Assessment and plan (1) Acute on chronic systolic heart failure: (2) Benign essential HTN: (3) Obesity, Class II, BMI 35-39.9: (4) Cardiac resynchronization therapy defibrillator (GUIDANCE ADVISER-D) in place: (5) Systolic CHF with reduced left ventricular function, NYHA class 2: (6) Cardiomyopathy: Qualifiers: Cardiomyopathy type: dilated Qualified Code(s): I42.0 - Dilated cardiomyopathy (7) Malignant hypertension: (8) SHAMA (obstructive sleep apnea): Plan Gwendolyn Keith is a 54 year old male with past medical history of systolic congestive heart failure with reduced EF, cardiomyopathy, malignant hypertension, ICD, cardiac resynchronization therapy defibrillator presented with complaint of worsening shortness of breath. Patient just signed out AMA yesterday and came back today with worsening shortness of breath, and requiring 4 L of oxygen via nasal cannula. In ER received IV Lasix 40 mg x 1 ASA 325mg x1 Creatinine 1.1 Mildly elevated LFTs proBNP 3979<---5451 troponin 37,39 Chest x-ray showed IMPRESSION: IMPRESSION: 1. Cardiac enlargement with mild pulmonary vascular congestion. No significant change. Acute systolic and diastolic congestive heart failure with reduced EF- Admit to CSU Rule out ACS troponin 37,39, follow up 6-hour trops EKG showed paced rhythm Will do IV Lasix 40 mg 3 times daily Monitor electrolytes and replace appropriately Monitor renal function Strict I's and O's Daily weight Fluid restriction to 1.5 L/day Will continue TRAFFIC EXPERT metoprolol, eplerenone and amiodarone ECHO 10/07 CONCLUSIONS Moderately increased left ventricular cavity size. Severely decreased left ventricular systolic function. Left ventricular ejection fraction is estimated at 15 % down from 25% in . Grade III/IV diastolic dysfunction (restrictive filling pattern), severely elevated filling pressures. Catheter/pacemaker wire visualized in the right ventricle. Moderately thickened mitral valve. Mild mitral annular calcification. No mitral valve stenosis. Mild-moderate mitral valve regurgitation. Moderate aortic valve calcification. No aortic valve stenosis. Trace aortic valve regurgitation. [id number]-[id number] tricuspid valve regurgitation. There is no pericardial effusion. Right atrial pressure is around 20 mm of mercury. SHAMA- CPAP at night GI prophylaxis with IV Pepcid twice daily DVT prophylaxis with subcutaneous heparin CODE STATUS discussed with patient, he is full code for now I's and O's reviewed. will continue current management. Creat 1.4 today, continue to monitor while on lasix. Rest labs are acceptable. PDMP PDMP Reviewed: Not Reviewed Attestations Medical Necessity Statement*: He needs continued hospitalization crossing 2 midnights for management of acute on chronic congestive heart failure, acute renal failure, with IV Lasix, monitoring of I's and O's, 2D echo and supportive care Time Spent in Patient Care: 15minutes Coding Level of Care Code Acute Code for Chg Fwd Diagnoses Acute on chronic systolic heart failure I50.23 Benign essential HTN I10 Obesity, Class II, BMI 35-39.9 E66.9 Cardiac resynchronization therapy defibrillator (GUIDANCE ADVISER-D) in place Z95.810 Systolic CHF with reduced left ventricular function, NYHA class 2 I50.20 Dilated cardiomyopathy I42.0 Cardiomyopathy type: dilated Malignant hypertension I10 SHAMA (obstructive sleep apnea) G47.33 Time Spent (min) 15
[2024-10-11] MEDS: enoxaparin 40 mg/0.4 mL Syringe SUBCUT (18:13)
[2024-10-11] MEDS: pantoprazole 40 mg SDV IVP (18:14)
[2024-10-12 03:00] VITALS: BP 95/52; PULSE 69; RESP 15; TEMP 36.6; O2SAT 95
[2024-10-12] MEDS: LORazepam 0.5 mg Tablet PO ×3 (04:11→20:00)
[2024-10-12 05:08] LABS: Basophils # 0.1 10^3/uL (0.0-0.1); Basophils % 0.5 %; Eosinophils # 0.2 10^3/uL (0.0-0.8); Eosinophils % 1.6 %; Hematocrit 49.5 % (37-53); Lymphocytes # 2.1 10^3/uL (0.8-4.8); Lymphocytes % 21.6 %; Mean Corpuscular HGB Conc 30.7 g/dL (30-55); Mean Corpuscular Hemoglobin 31.1 pg (27-33); Mean Corpuscular Volume 101.2 fl (82-101); Mean Platelet Volume 10.3 fL (7.4-10.4); Monocytes # 0.7 10^3/uL (0.2-0.9); Monocytes % 7.7 %; Neutrophils # 6.48 10^3/uL (1.8-7.7); Neutrophils % 67.9 %; Nucleated Red Blood Cells % 0 %; Platelet Count 159 10^3/cmm (157-399); Red Blood Count 4.89 10^6/uL (3.85-5.65); Red Cell Distribution Width 14.6 % (12.1-15.1); White Blood Count 9.54 10^3/uL (3.29-11.43)
[2024-10-12 05:22] LABS: Anion Gap 17.8 (5-19); Blood Urea Nitrogen 23 mg/dL (6-20); Calcium 8.5 mg/dL (8.5-10.5); Carbon Dioxide 25 mmol/L (22-29); Chloride 99 mmol/L (98-107); Creatinine Clr Calc Pharmacy 91.8547; Glomerular Filtration Rate 62.9 mL/min (90-130); Glucose 140 mg/dL (65-115); Magnesium 1.8 mg/dL (1.7-2.3); Osmolality Calculated 292 mOsm/kg (285-295); Potassium 3.8 mmol/L (3.5-5.1); Sodium 138 mmol/L (136-145)
[2024-10-12 07:21] VITALS: BP 120/97; PULSE 90; RESP 12; TEMP 36.6; O2SAT 94
[2024-10-12] MEDS: magnesium oxide 400 mg tablet PO (08:41)
[2024-10-12] MEDS: potassium chloride ER 20 mEq Tablet 40 MEQ PO (08:42)
[2024-10-12] MEDS: amiodarone 200 mg Tablet PO (08:43)
[2024-10-12] MEDS: FUROsemide 10 mg/mL SDV 4mL 40 MG IVP ×3 (08:43→19:59)
[2024-10-12] MEDS: metoprolol succinate ER (24 HR) 100 mg Tablet PO (08:43)
[2024-10-12] MEDS: escitalopram 10 mg Tablet PO (08:44)
--- NOTE | 2024-10-12 11:36 | PM.PN ---
Subjective Subjective: No acute overnight events noted. He has been able to sleep last night with CPAP. Denies any new complaints at this point Medications: Reviewed: Yes Vitals/I&O/Wt Last Vital Signs Temp 97.9 F 10/12/24 07:21 Pulse 90 10/12/24 07:21 Resp 12 10/12/24 07:21 BP 120/97 10/12/24 07:21 Pulse Ox 94 10/12/24 07:21 O2 Del Method CPAP 10/12/24 07:21 O2 Flow Rate 4 10/11/24 12:00 10/11/24 10/12/24 10/12/24 22:59 06:59 14:59 Intake Total 240 / 840 400 / 1240 620 / 620 Output Total 380 / 960 1400 / 2360 300 / 300 Balance -140 / -120 -1000 / -1120 320 / 320 Weight last 48 hrs Weight 127.369 kg Weight 128.503 kg Weight 128.503 kg Weight 129.773 kg Weight 126.099 kg Physical Exam Narrative: He is alert awake oriented x 3, morbidly obese, in moderate respiratory distress Chest B/L fine crackles present at the bases, otherwise clear to ascultation Cardiovascular normal heart sounds no murmurs Abdomen soft distended nontender normal bowel sounds Extremities bilateral 4+ pitting edema present lower extremities Data 10/12/24 04:44 10/12/24 04:44 A&P Assessment and plan (1) Acute on chronic systolic heart failure: (2) Benign essential HTN: (3) Obesity, Class II, BMI 35-39.9: (4) Cardiac resynchronization therapy defibrillator (INSURANCE RATER-D) in place: (5) Systolic CHF with reduced left ventricular function, NYHA class 2: (6) Cardiomyopathy: Qualifiers: Cardiomyopathy type: dilated Qualified Code(s): I42.0 - Dilated cardiomyopathy (7) Malignant hypertension: (8) SHAMA (obstructive sleep apnea): Plan Gwendolyn Keith is a 54 year old male with past medical history of systolic congestive heart failure with reduced EF, cardiomyopathy, malignant hypertension, ICD, cardiac resynchronization therapy defibrillator presented with complaint of worsening shortness of breath. Patient just signed out AMA yesterday and came back today with worsening shortness of breath, and requiring 4 L of oxygen via nasal cannula. In ER received IV Lasix 40 mg x 1 ASA 325mg x1 Creatinine 1.1 Mildly elevated LFTs proBNP 3979<---5451 troponin 37,39 Chest x-ray showed IMPRESSION: IMPRESSION: 1. Cardiac enlargement with mild pulmonary vascular congestion. No significant change. Acute systolic and diastolic congestive heart failure with reduced EF- Admit to CSU Rule out ACS troponin 37,39, follow up 6-hour trops EKG showed paced rhythm Will do IV Lasix 40 mg 3 times daily Monitor electrolytes and replace appropriately Monitor renal function Strict I's and O's Daily weight Fluid restriction to 1.5 L/day Will continue PROFESSOR OF BUSINESS metoprolol, eplerenone and amiodarone ECHO 10/07 CONCLUSIONS Moderately increased left ventricular cavity size. Severely decreased left ventricular systolic function. Left ventricular ejection fraction is estimated at 15 % down from 25% in . Grade III/IV diastolic dysfunction (restrictive filling pattern), severely elevated filling pressures. Catheter/pacemaker wire visualized in the right ventricle. Moderately thickened mitral valve. Mild mitral annular calcification. No mitral valve stenosis. Mild-moderate mitral valve regurgitation. Moderate aortic valve calcification. No aortic valve stenosis. Trace aortic valve regurgitation. Kixj-qv-zxwrdmxv tricuspid valve regurgitation. There is no pericardial effusion. Right atrial pressure is around 20 mm of mercury. SHAMA- CPAP at night GI prophylaxis with IV Pepcid twice daily DVT prophylaxis with subcutaneous heparin CODE STATUS discussed with patient, he is full code for now I's and O's reviewed. will continue current management. Creat 1.4 today, continue to monitor while on lasix. Rest labs are acceptable. 10/12/24 I's and O's reviewed. There is no change in weight. But clinically he is doing better. Creatinine 1.2 today. Will continue Lasix 40 mg 3 times daily for now Cardiology consulted for worsening systolic heart failure with EF of 15%. Need discussion for LifeVest at this time. Patient had refused LifeVest last time he was here in the hospital for acute congestive heart failure with EF of 25%. Continue to monitor in CSU. PDMP PDMP Reviewed: Not Reviewed Attestations Medical Necessity Statement*: He needs continued hospitalization crossing 2 midnights for management of acute on chronic congestive heart failure, acute renal failure, with IV Lasix, monitoring of I's and O's, 2D echo and supportive care Time Spent in Patient Care: 15minutes Coding Level of Care Code Acute Code for Chg Fwd Diagnoses Acute on chronic systolic heart failure I50.23 Benign essential HTN I10 Obesity, Class II, BMI 35-39.9 E66.9 Cardiac resynchronization therapy defibrillator (INSURANCE RATER-D) in place Z95.810 Systolic CHF with reduced left ventricular function, NYHA class 2 I50.20 Dilated cardiomyopathy I42.0 Cardiomyopathy type: dilated Malignant hypertension I10 SHAMA (obstructive sleep apnea) G47.33 Time Spent (min) 15
[2024-10-12 11:41] VITALS: BP 111/85; PULSE 90; RESP 16; TEMP 37; O2SAT 97
--- NOTE | 2024-10-12 11:44 | PM.CONSULT ---
Providers/Reason For Consult Consulting Physician/Specialty*: Cali Samson MD/cardiology Reason for Consult*: Acute decompensated systolic heart failure Cardiomyopathy Requesting Physician: Debi Martin MD Attending Physician: Debi Martin MD History of Present Illness History of Present Illness Gwendolyn Keith is a 54 year old male past medical history significant for noncompliance nonischemic cardiomyopathy denies any prior intervention, severely depressed left ventricular ejection fraction less than 30% status post ICD BIOINFORMATICS SUPPORT SPECIALIST-D who was admitted couple of days before and left AMA according to him he has to take care of his animals, he returns back with shortness of breath PND orthopnea noted to be in decompensated systolic heart failure it is the reason patient is admitted to the hospital denies any chest pain according to him since he has taken care of his animals he would like to stay and get appropriate treatment. Twelve-lead EKG is consistent with paced rhythm Review of Systems General: Reports: 10 or more systems reviewed and unremarkable except in HPI and below Const: Denies: fever(s) or chills Card: Reports: edema, swelling of feet/ankles, dyspnea on exertion and orthopnea; Denies: chest pain Resp: Denies: dyspnea GI: Denies: abdominal pain : Denies: dysuria, urinary frequency or urinary urgency Musc: Denies: neck pain or back pain Skin/Breast: Denies: rash All/Imm: Denies: acute wheezing Medications/Allergies Home Medications ?Medication ?Instructions ?Recorded ?Confirmed ?Last Taken ?Type amiodarone 200 mg tablet 200 mg PO DAILY #90 tabs 09/17/23 10/10/24 10/10/24 Rx eplerenone 50 mg tablet (Inspra) 50 mg PO DAILY #90 tabs 11/26/23 10/10/24 10/10/24 Rx meloxicam 15 mg tablet 15 mg PO DAILY #30 tabs 06/30/24 10/10/24 10/10/24 Rx furosemide 20 mg tablet (Lasix) 20 mg PO DAILY PRN weight gain #60 09/05/24 10/10/24 10/10/24 Rx tabs metoprolol succinate 100 mg 100 mg PO DAILY #90 tabs 09/09/24 10/10/24 10/10/24 Rx tablet,extended release 24 hr valsartan 160 mg tablet 160 mg PO BID #180 tabs 09/30/24 10/10/24 10/10/24 Rx Allergies Allergy/AdvReac Type Severity Reaction Status Date / Time No Known Allergies Allergy Verified 10/10/24 14:53 Current Medications Generic Name Dose Route Start Last Admin Trade Name Luis Felipeq PRN Reason Stop Dose Admin Amiodarone HCl 200 mg 10/11/24 09:00 10/12/24 08:43 Amiodarone 200 Mg Tablet PO 200 mg DAILY BELL Administration Enoxaparin Sodium 40 mg 10/10/24 18:15 10/11/24 18:13 Enoxaparin 40 Mg/0.4 Ml Syringe SUBCUT 40 mg Q24H BELL Administration Escitalopram Oxalate 10 mg 10/11/24 09:00 10/12/24 08:44 Escitalopram 10 Mg Tablet PO 10 mg DAILY BELL Administration Furosemide 40 mg 10/10/24 21:00 10/12/24 08:43 Furosemide 10 Mg/Ml Sdv 4ml IVP 40 mg TID BELL Administration Lorazepam 0.5 mg 10/11/24 13:00 10/12/24 04:11 Lorazepam 0.5 Mg Tablet PO 0.5 mg Q8H BELL Administration Metoprolol Succinate 100 mg 10/11/24 09:00 10/12/24 08:43 Metoprolol Succinate Er (24 Hr) 100 Mg Tablet PO 100 mg DAILY BELL Administration Pantoprazole Sodium 40 mg 10/10/24 18:15 10/11/24 18:14 Pantoprazole 40 Mg Sdv IVP 40 mg Q24H BELL Administration PFSH Acute PFSH: Medical History Cardiac resynchronization therapy defibrillator (BIOINFORMATICS SUPPORT SPECIALIST-D) in place ICD (implantable cardioverter-defibrillator) battery depletion Systolic CHF with reduced left ventricular function, NYHA class 2 Cardiomyopathy Malignant hypertension Essential hypertension Surgical History Status post correction of deviated nasal septum Family History Other CAD (coronary artery disease) Denies family history of Diabetes Cancer Hypertension Social History Smoking and tobacco/nicotine status: former use of tobacco/nicotine Alcohol intake: current Alcohol intake frequency: holidays/special occasions only Substance/Drug Use: never Dietary Habits: Current diet type/program: regular Caffeine: Yes Caffeine intake frequency: other (occasional energy drinks) Exercise: What type of physical activity do you participate in?: weight lifting How many days of moderate to strenuous exercise, like a brisk walk, did you do in the last 7 days: 3 Safety: Seatbelt use: always Vitals/I&O/Wt Last Vital Signs Temp 98.6 F 10/12/24 11:41 Pulse 90 10/12/24 11:41 Resp 16 10/12/24 11:41 BP 111/85 10/12/24 11:41 Pulse Ox 97 10/12/24 11:41 O2 Del Method Nasal Cannula 10/12/24 11:41 O2 Flow Rate 4 10/12/24 11:41 10/11/24 10/12/24 10/12/24 22:59 06:59 14:59 Intake Total 240 / 840 400 / 1240 620 / 620 Output Total 380 / 960 1400 / 2360 850 / 850 Balance -140 / -120 -1000 / -1120 -230 / -230 Weight last 48 hrs Weight 280 lb 12.8 oz Weight 283 lb 4.8 oz Weight 283 lb 4.8 oz Weight 286 lb 1.6 oz Weight 278 lb Physical Exam Const: OTHER: GENERAL: Patient is alert, awake and oriented x3. HEART: Regular S1 and S2. No murmur, rub or gallop. LUNGS: Decreased breath sound with basal crackles bilaterally. CENTRAL NERVOUS SYSTEM: Grossly nonfocal. EXTREMITIES: Lower extremities with 1+ edema bilaterally. Data 10/12/24 04:44 10/12/24 04:44 A&P Assessment and plan (1) Acute on chronic systolic heart failure: (2) Atrial fibrillation: Qualifiers: Atrial fibrillation type: paroxysmal Qualified Code(s): I48.0 - Paroxysmal atrial fibrillation (3) Malignant hypertension: Plan Patient appeared to be stable after starting diuresis, advised to stay at least 2 to 3 days in the hospital for IV Lasix since he is volume overloaded and need optimization of medicine. Patient has been started on IV 40 mg 3 times daily Lasix by hospitalist colleagues, will monitor his output with a goal of 1 to 1.5 L negative in a day. Once euvolemic will add Entresto to his regimen Continue anticoagulation with history of atrial fibrillation Continue p.o. amiodarone as a home medicine Continue beta-emil in the terms of metoprolol Further plan be advised as per progress the patient PDMP PDMP Reviewed: Not Reviewed Consult Attestations Medical Necessity Statement: Patient require continuation hospitalization for above defined care. Coding Level of Care Code Acute Code for [facility] Fwd Diagnoses Acute on chronic systolic heart failure I50.23 Paroxysmal atrial fibrillation I48.0 Atrial fibrillation type: paroxysmal Malignant hypertension I10
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
[2024-10-12 15:39] VITALS: PULSE 74
[2024-10-12 16:00] VITALS: BP 124/80; PULSE 81; RESP 20; TEMP 36.9; O2SAT 96
[2024-10-12] MEDS: pantoprazole 40 mg SDV IVP (17:52)
[2024-10-12] MEDS: enoxaparin 40 mg/0.4 mL Syringe SUBCUT (17:52)
[2024-10-12 19:58] VITALS: BP 119/85; PULSE 90; RESP 20; TEMP 36.9; O2SAT 95
[2024-10-13] VITALS (98 sets, daily range): BP systolic 99–130; BP diastolic 59–98; PULSE 64–93; RESP 18–23; TEMP 36.6–37.3; O2SAT 79–97
[2024-10-13] MEDS: LORazepam 0.5 mg Tablet PO (04:37)
[2024-10-13 05:43] LABS: Basophils # 0.1 10^3/uL (0.0-0.1); Basophils % 0.6 %; Eosinophils # 0.1 10^3/uL (0.0-0.8); Hematocrit 51.9 % (37-53); Lymphocytes # 2.3 10^3/uL (0.8-4.8); Lymphocytes % 24.3 %; Mean Corpuscular HGB Conc 30.8 g/dL (30-55); Mean Corpuscular Hemoglobin 31.6 pg (27-33); Mean Corpuscular Volume 102.6 fl (82-101); Mean Platelet Volume 10.6 fL (7.4-10.4); Monocytes # 0.8 10^3/uL (0.2-0.9); Monocytes % 8.5 %; Neutrophils # 6.06 10^3/uL (1.8-7.7); Neutrophils % 65.2 %; Nucleated Red Blood Cells % 0 %; Platelet Count 168 10^3/cmm (157-399); Red Blood Count 5.06 10^6/uL (3.85-5.65); Red Cell Distribution Width 14.6 % (12.1-15.1)
[2024-10-13 06:04] LABS: Blood Urea Nitrogen 23 mg/dL (6-20); Calcium 8.5 mg/dL (8.5-10.5); Carbon Dioxide 27 mmol/L (22-29); Chloride 100 mmol/L (98-107); Glomerular Filtration Rate 62.9 mL/min (90-130); Glucose 133 mg/dL (65-115); Magnesium 2.1 mg/dL (1.7-2.3); Osmolality Calculated 294 mOsm/kg (285-295); Sodium 139 mmol/L (136-145)
[2024-10-13 06:05] LABS: Anion Gap 16.3 (5-19); Potassium 4.3 mmol/L (3.5-5.1)
[2024-10-13] MEDS: amiodarone 200 mg Tablet PO (09:24)
[2024-10-13] MEDS: metoprolol succinate ER (24 HR) 100 mg Tablet PO (09:24)
[2024-10-13] MEDS: FUROsemide 10 mg/mL SDV 4mL 40 MG IVP ×3 (09:24→21:33)
[2024-10-13] MEDS: escitalopram 10 mg Tablet PO (09:24)
--- NOTE | 2024-10-13 09:33 | PC.CHAP ---
Pastoral Care Encounter/Spiritual Assessment Type of Contact [] Declined assistant financial accountant visit [] Patient/Family/Request visit [] Outpatient visit [] Follow-up visit [] Physician referral [] Code/Alert [x] Routine visit [] Staff referral [] Actively dying [x] Patient sleeping [] Family support [] [] Out of room [] Palliative care [] [] Receiving care in room [] Pre-surgical visit [] Trauma [] Long length of stay [] ICU visit [] Other: Relational/Emotional Strength [] Patient feels connected with others/family/visitors/staff [] Distress [] Loneliness/isolation [] Abandonment Spirituality of Patient [] Person of Belkis [] Attends Tenriism of their Belkis [] Believes in Prayer [] Reads Bible or Zoroastrian materials [] There are Spiritual issues to be addressed Photostat Operator Helper Interventions [x] Prayer [] Active listening [] Non-anxious presence [] Spiritual/emotional support [] Crisis/trauma care [] Spiritual counseling [] Bereavement support [] Provided bereavement packet [] Provided Bible/devotional materials [] Provided toy/stuffed animal, coloring book to patient or family member [] Provided Communion [] Anointing/[place] [] Salvation [] Completed spiritual assessment [] Other: Impact on Illness or Injury [] Angry [] Fearful [] Anxious [] Often cries [] Exhaustion [] Unable to work [] Unable to attend alevism [] Unable to walk/stand [] Unable to read [] Unable to drive [] Unable to eat/drink [] Unable to sleep [] Unable to be with family [] Patient intubated [] Other: Summary Time spent with patient
[2024-10-13 10:15] LABS: Estmated Average Glucose 123; Hemoglobin A1C 5.9 % (4.0-6.0)
[2024-10-13 10:56] LABS: Iron 45 ug/dL (59-158); Vitamin B12 641 pg/mL (232-1245)
[2024-10-13 11:01] LABS: Percent Saturation 10.2 % (20-50); Total Iron Binding Capacity 437 mcg/dl; Unsaturated Iron Binding 392 ug/dL (112-347)
--- NOTE | 2024-10-13 14:02 | P.PN_ITS ---
Subjective 2 Subjective: Hospital course, labs appreciated. Patient sitting comfortably in bed on his home CPAP. Denies any nausea, vomiting, headache. States he is feeling better. Medications: Reviewed: Yes Vitals/I&O/Wt Last Vital Signs Temp 99.1 F 10/13/24 12:00 Pulse 77 10/13/24 12:00 Resp 18 10/13/24 12:00 BP 130/98 10/13/24 12:20 Pulse Ox 97 10/13/24 12:00 O2 Del Method CPAP 10/13/24 12:00 O2 Flow Rate 3 10/13/24 07:49 10/12/24 10/13/24 10/13/24 22:59 06:59 14:59 Intake Total 360 / 1100 700 / 1800 840 / 840 Output Total 1530 / 2380 600 / 2980 200 / 200 Balance -1170 / -1280 100 / -1180 640 / 640 Weight last 48 hrs Weight 123.06 kg Weight 123.06 kg Weight 127.369 kg Physical Exam 2 Narrative: He is alert awake oriented x 3, morbidly obese Chest B/L fine crackles present at the bases, otherwise clear to ascultation Cardiovascular : S1-S2 regular, pansystolic murmur at apex, JVD mildly elevated Abdomen soft distended nontender normal bowel sounds Extremities bilateral 4+ pitting edema present lower extremities Data 10/13/24 05:18 10/13/24 05:18 A&P Assessment and plan (1) Acute on chronic systolic heart failure: (2) Benign essential HTN: (3) Obesity, Class II, BMI 35-39.9: (4) Cardiac resynchronization therapy defibrillator (TRAVEL PT-D) in place: (5) Systolic CHF with reduced left ventricular function, NYHA class 2: (6) Cardiomyopathy: Qualifiers: Cardiomyopathy type: dilated Qualified Code(s): I42.0 - Dilated cardiomyopathy (7) Malignant hypertension: (8) SHAMA (obstructive sleep apnea): Plan Gwendolyn Keith is a 54 year old male with past medical history of systolic congestive heart failure with reduced EF, cardiomyopathy, malignant hypertension, ICD, cardiac resynchronization therapy defibrillator presented with complaint of worsening shortness of breath. Patient just signed out AMA yesterday and came back today with worsening shortness of breath, and requiring 4 L of oxygen via nasal cannula. Acute systolic and diastolic congestive heart failure with reduced EF- Recent echocardiogram showed EF 15% grade 2 diastolic dysfunction, mild to moderate MR, trace AI, mild to moderate TR. Fluid restriction 1500 cc. Continue with IV Lasix for now. Continue with metoprolol 100 mg twice daily for now. Will add RONNIE/ARB/Arni depending on blood pressures going forward. As patient is on high dose of IV diuretics will repeat BMP in afternoon to monitor for electrolytes and for contraction alkalosis. Hypoxia: In setting of congestive heart failure along with obstructive sleep apnea. Oxygen supplementation keeping saturation over 90%. Continue with home CPAP. SHAMA- CPAP at night Check A1c, iron panel, TSH, vitamin B12 level. GI prophylaxis: Protonix DVT prophylaxis: Lovenox 40 mg subcu daily CODE STATUS discussed with patient, he is full code for now PDMP PDMP Reviewed: Not Reviewed Attestations 2 Medical Necessity Statement*: Requires further hospitalization for management of acute on chronic decompensated systolic and diastolic congestive heart failure, hypoxia Diagnoses Acute on chronic systolic heart failure I50.23 Benign essential HTN I10 Obesity, Class II, BMI 35-39.9 E66.9 Cardiac resynchronization therapy defibrillator (TRAVEL PT-D) in place Z95.810 Systolic CHF with reduced left ventricular function, NYHA class 2 I50.20 Dilated cardiomyopathy I42.0 Cardiomyopathy type: dilated Malignant hypertension I10 SHAMA (obstructive sleep apnea) G47.33
--- NOTE | 2024-10-13 14:15 | P.PN_ITS ---
<Statement entered by Cali Samson MD - 10/13/24 20:42> Patient was evaluated and cared for in conjunction with an advanced practice practitioner. I personally examined the patient and reviewed the chart and all pertinent data including imaging, telemetry, and laboratory results. I discussed the patient in detail with the advanced practice practitioner. Please see their note for complete H&P testing result and agreed upon plan of care for the patient. Overall feeling better GENERAL: Patient is alert, awake and oriented x3. HEART: Regular S1 and S2. No murmur, rub or gallop. LUNGS: Clear to auscultate bilaterally. CENTRAL NERVOUS SYSTEM: Grossly nonfocal. EXTREMITIES: Lower extremities with out edema bilaterally. Atrial fibrillation: Well-controlled Acute decompensated systolic heart failure Continue IV diuretic goal 1 to 1.5 L negative Subjective 2 Subjective: Patient appears to be stable today. He is still requiring O2. He states at baseline he does not require oxygen. He is responding well to the Lasix. He has had -1800 over 24 hours. Currently on Lasix 40 3 times daily. Creatinine is stable at 1.2. I did discuss with patient about adding Entresto once he is euvolemic. He is apprehensive about starting new medications. Vitals/I&O/Wt Last Vital Signs Temp 99.1 F 10/13/24 12:00 Pulse 77 10/13/24 12:00 Resp 18 10/13/24 12:00 BP 130/98 10/13/24 12:20 Pulse Ox 97 10/13/24 12:00 O2 Del Method CPAP 10/13/24 12:00 O2 Flow Rate 3 10/13/24 07:49 10/12/24 10/13/24 10/13/24 22:59 06:59 14:59 Intake Total 360 / 1100 700 / 1800 840 / 840 Output Total 1530 / 2380 600 / 2980 200 / 200 Balance -1170 / -1280 100 / -1180 640 / 640 Weight last 48 hrs Weight 271 lb 4.8 oz Weight 271 lb 4.8 oz Weight 280 lb 12.8 oz Physical Exam 2 Narrative: General: No apparent distress, healthy appearing, well nourished Muskuloskeletal: Full ROM Lymphatic: no lymphedema noted Respiratory: Normal respiratory effort, clear to auscultation bilaterally throughout all lung martinez, no use of accessory muscles Cardio: No JVD, regular rate, regular rhythm, S1 S2 normal, no murmurs, peripheral pulses 2+ radial palpated bilaterally GI: Normal to inspection, nondistended Extremities: Full ROM, normal, normal capillary refill, no cyanosis or edema Neuro: Alert and oriented x4, no focal motor deficits Psych: Affect normal, denies suicidal ideation, mental status grossly normal Skin: No rashes or lesions noted, no wounds Data 10/13/24 05:18 10/13/24 05:18 A&P Assessment and plan (1) Acute on chronic systolic heart failure: (2) Atrial fibrillation: Qualifiers: Atrial fibrillation type: paroxysmal Qualified Code(s): I48.0 - Paroxysmal atrial fibrillation (3) Malignant hypertension: Plan Patient is improving from a heart failure standpoint. Oxygen has been slightly weaned down. Will continue Lasix 40 3 times daily, continue metoprolol 100 p.o. daily with amiodarone 200 mg daily. Continue Lovenox for stroke prophylaxis. Will require at least a day or 2 more of diuresis. Once he is euvolemic we will discuss with him if he would like to try Entresto. Will continue to watch FELY as well as creatinine closely. PDMP PDMP Reviewed: Not Reviewed Attestations 2 Medical Necessity Statement*: Deferred to primary. Coding Level of Care Code Acute Code for Chg Fwd Diagnoses Acute on chronic systolic heart failure I50.23 Paroxysmal atrial fibrillation I48.0 Atrial fibrillation type: paroxysmal Malignant hypertension I10
[2024-10-13 17:01] LABS: Anion Gap 16.7 (5-19); Blood Urea Nitrogen 24 mg/dL (6-20); Calcium 8.8 mg/dL (8.5-10.5); Carbon Dioxide 27 mmol/L (22-29); Chloride 100 mmol/L (98-107); Creatinine Clr Calc Pharmacy 98.3553; Glomerular Filtration Rate 69.5 mL/min (90-130); Glucose 133 mg/dL (65-115); Osmolality Calculated 296 mOsm/kg (285-295); Potassium 3.7 mmol/L (3.5-5.1); Sodium 140 mmol/L (136-145)
--- NOTE | 2024-10-13 17:46 | PC.NURSE ---
Patient refuses to leave medical monitoring equipment on.
[2024-10-13] MEDS: enoxaparin 40 mg/0.4 mL Syringe SUBCUT (19:43)
[2024-10-13] MEDS: pantoprazole 40 mg SDV IVP (19:43)
[2024-10-14] VITALS (8 sets, daily range): BP systolic 100–127; BP diastolic 59–91; PULSE 62–89; RESP 9–20; TEMP 36.4–37.6; O2SAT 90–99
[2024-10-14 03:13] LABS: Basophils % 0.4 %; Eosinophils # 0.1 10^3/uL (0.0-0.8); Eosinophils % 0.5 %; Hematocrit 46.1 % (37-53); Lymphocytes % 9.6 %; Mean Corpuscular HGB Conc 31.5 g/dL (30-55); Mean Corpuscular Hemoglobin 31.1 pg (27-33); Mean Corpuscular Volume 98.9 fl (82-101); Mean Platelet Volume 10.3 fL (7.4-10.4); Monocytes # 0.8 10^3/uL (0.2-0.9); Monocytes % 7.4 %; Neutrophils # 8.78 10^3/uL (1.8-7.7); Neutrophils % 81.6 %; Nucleated Red Blood Cells % 0 %; Platelet Count 162 10^3/cmm (157-399); Red Blood Count 4.66 10^6/uL (3.85-5.65); Red Cell Distribution Width 14.2 % (12.1-15.1); White Blood Count 10.74 10^3/uL (3.29-11.43)
[2024-10-14 03:30] LABS: Alanine Aminotransferase 40 U/L (0-41); Albumin Level 3.3 g/dL (3.5-5.2); Alkaline Phosphatase 138 U/L (40-130); Anion Gap 11.2 (5-19); Aspartate Amino Transferase 27 U/L (0-40); Blood Urea Nitrogen 18 mg/dL (6-20); Calcium 8.3 mg/dL (8.5-10.5); Carbon Dioxide 31 mmol/L (22-29); Chloride 98 mmol/L (98-107); Creatinine Clr Calc Pharmacy 98.3553; Glomerular Filtration Rate 69.5 mL/min (90-130); Glucose 143 mg/dL (65-115); Osmolality Calculated 288 mOsm/kg (285-295); Potassium 3.2 mmol/L (3.5-5.1); Sodium 137 mmol/L (136-145); Total Bilirubin 0.8 mg/dL (0.15-1.2); Total Protein 6.3 g/dL (6.6-8.7)
[2024-10-14 03:40] LABS: Magnesium 1.8 mg/dL (1.7-2.3)
[2024-10-14 03:51] LABS: Folate Level 11.2 ng/mL (4.5-32.2)
[2024-10-14] MEDS: saline nasal spray 44mL Btl 1 SPRAY NASAL ×2 (04:41→08:05)
[2024-10-14] MEDS: potassium chloride ER 20 mEq Tablet 40 MEQ PO (04:41)
[2024-10-14] MEDS: FUROsemide 10 mg/mL SDV 4mL 40 MG IVP (08:05)
[2024-10-14] MEDS: amiodarone 200 mg Tablet PO (08:05)
[2024-10-14] MEDS: metoprolol succinate ER (24 HR) 100 mg Tablet PO (08:06)
[2024-10-14] MEDS: escitalopram 10 mg Tablet PO (08:06)
--- NOTE | 2024-10-14 09:57 | PC.CHAP ---
Pastoral Care Encounter/Spiritual Assessment Type of Contact [] Declined security controls assessor visit [] Patient/Family/Request visit [] Outpatient visit [] Follow-up visit [] Physician referral [] Code/Alert [] Routine visit [] Staff referral [] Actively dying [x] Patient sleeping [] Family support [] [] Out of room [] Palliative care [] [] Receiving care in room [] Pre-surgical visit [] Trauma [] Long length of stay [] ICU visit [] Other: Relational/Emotional Strength [] Patient feels connected with others/family/visitors/staff [] Distress [] Loneliness/isolation [] Abandonment Spirituality of Patient [] Person of Belkis [] Attends Quaker of their [place] [] Believes in Prayer [] Reads Bible or Cheondoism materials [] There are Spiritual issues to be addressed Shellfish Manager Interventions [] Prayer [] Active listening [] Non-anxious presence [] Spiritual/emotional support [] Crisis/trauma care [] Spiritual counseling [] Bereavement support [] Provided bereavement packet [] Provided Bible/devotional materials [] Provided toy/stuffed animal, coloring book to patient or family member [] Provided Communion [] Anointing/[place] [] Salvation [] Completed spiritual assessment [] Other: Impact on Illness or Injury [] Angry [] Fearful [] Anxious [] Often cries [] Exhaustion [] Unable to work [] Unable to attend baptist [] Unable to walk/stand [] Unable to read [] Unable to drive [] Unable to eat/drink [] Unable to sleep [] Unable to be with family [] Patient intubated [] Other: Summary Time spent with patient
--- NOTE | 2024-10-14 11:33 | P.PN_ITS ---
<Statement entered by Cali Samson MD - 10/19/24 11:29> Patient was evaluated and cared for in conjunction with an advanced practice practitioner. I personally examined the patient and reviewed the chart and all pertinent data including imaging, telemetry, and laboratory results. I discussed the patient in detail with the advanced practice practitioner. Please see their note for complete H&P testing result and agreed upon plan of care for the patient. Subjective 2 Subjective: Patient is doing well today. Creatinine is stable at 1.1. Potassium was slightly low at 3.2. This has been replenished with 40 mill equivalents of potassium x 1. Blood pressure is stable at 113/91 and pulse is 88. I discussed with patient starting Entresto. He agrees. Will start this today and see how patient does. He is currently on Lasix 40 3 times daily. He was -635/24 hours. Vitals/I&O/Wt Last Vital Signs Temp 97.5 F L 10/14/24 11:23 Pulse 88 10/14/24 11:23 Resp 20 H 10/14/24 11:23 BP 113/91 10/14/24 11:23 Pulse Ox 95 10/14/24 11:23 O2 Del Method Nasal Cannula 10/14/24 11:23 O2 Flow Rate 2 10/14/24 11:23 10/13/24 10/14/24 10/14/24 22:59 06:59 14:59 Intake Total 360 / 1200 480 / 1680 240 / 240 Output Total 800 / 1000 1075 / 2075 Balance -440 / 200 -595 / -395 240 / 240 Weight last 48 hrs Weight 296 lb 8 oz Weight 271 lb 4.8 oz Weight 271 lb 4.8 oz Physical Exam 2 Narrative: General: No apparent distress, healthy appearing, well nourished Muskuloskeletal: Full ROM Lymphatic: no lymphedema noted Respiratory: Normal respiratory effort, clear to auscultation bilaterally throughout all lung martinez, no use of accessory muscles Cardio: No JVD, regular rate, regular rhythm, S1 S2 normal, no murmurs, peripheral pulses 2+ radial palpated bilaterally GI: Normal to inspection, nondistended Extremities: Full ROM, normal, normal capillary refill, no cyanosis or edema Neuro: Alert and oriented x4, no focal motor deficits Psych: Affect normal, denies suicidal ideation, mental status grossly normal Skin: No rashes or lesions noted, no wounds Data 10/14/24 02:27 10/14/24 02:27 A&P Assessment and plan (1) Acute on chronic systolic heart failure: (2) Atrial fibrillation: Qualifiers: Atrial fibrillation type: paroxysmal Qualified Code(s): I48.0 - Paroxysmal atrial fibrillation (3) Malignant hypertension: Plan Patient is improving from a heart failure standpoint. Oxygen has been slightly weaned down. Will recommend continue Lasix 40 3 times daily, continue metoprolol 100 p.o. daily with amiodarone 200 mg daily. Continue Lovenox for stroke prophylaxis. Will start Entresto, as patient has agreed. Will continue to watch FELY as well as creatinine closely. PDMP PDMP Reviewed: Not Reviewed Attestations 2 Medical Necessity Statement*: Deferred to primary. Coding Level of Care Code Acute Code for Chg Fwd Diagnoses Acute on chronic systolic heart failure I50.23 Paroxysmal atrial fibrillation I48.0 Atrial fibrillation type: paroxysmal Malignant hypertension I10
--- NOTE | 2024-10-14 11:59 | PM.PN ---
Subjective Subjective: No acute vents overnight. Patient states he is feeling a lot better. States he is able to lie down better. Denies any nausea, vomiting, headache. Currently on 2 L of oxygen supplementation. Medications: Reviewed: Yes Vitals/I&O/Wt Last Vital Signs Temp 97.5 F L 10/14/24 11:23 Pulse 88 10/14/24 11:23 Resp 20 H 10/14/24 11:23 BP 113/91 10/14/24 11:23 Pulse Ox 95 10/14/24 11:23 O2 Del Method Nasal Cannula 10/14/24 11:23 O2 Flow Rate 2 10/14/24 11:23 10/13/24 10/14/24 10/14/24 22:59 06:59 14:59 Intake Total 360 / 1200 480 / 1680 240 / 240 Output Total 800 / 1000 1075 / 2075 Balance -440 / 200 -595 / -395 240 / 240 Weight last 48 hrs Weight 134.49 kg Weight 123.06 kg Weight 123.06 kg Physical Exam Narrative: He is alert awake oriented x 3, morbidly obese Chest B/L fine crackles present at the bases, otherwise clear to ascultation Cardiovascular : S1-S2 regular, pansystolic murmur at apex, JVD mildly elevated Abdomen soft distended nontender normal bowel sounds Extremities bilateral 4+ pitting edema present lower extremities Data 10/14/24 02:27 10/14/24 02:27 A&P Assessment and plan (1) Acute on chronic systolic heart failure: (2) Benign essential HTN: (3) Obesity, Class II, BMI 35-39.9: (4) Cardiac resynchronization therapy defibrillator (VOCATIONAL EDUCATION TEACHER-D) in place: (5) Systolic CHF with reduced left ventricular function, NYHA class 2: (6) Cardiomyopathy: Qualifiers: Cardiomyopathy type: dilated Qualified Code(s): I42.0 - Dilated cardiomyopathy (7) Malignant hypertension: (8) SHAMA (obstructive sleep apnea): Plan Gwendolyn Keith is a 54 year old male with past medical history of systolic congestive heart failure with reduced EF, cardiomyopathy, malignant hypertension, ICD, cardiac resynchronization therapy defibrillator presented with complaint of worsening shortness of breath. Patient just signed out AMA yesterday and came back today with worsening shortness of breath, and requiring 4 L of oxygen via nasal cannula. Acute systolic and diastolic congestive heart failure with reduced EF- Recent echocardiogram showed EF 15% grade 2 diastolic dysfunction, mild to moderate MR, trace AI, mild to moderate TR. Fluid restriction 1500 cc. Continue with IV Lasix for now. Continue with metoprolol 100 mg twice daily for now. Will add RONNIE/ARB/Arni depending on blood pressures going forward. As patient is on high dose of IV diuretics will repeat BMP in afternoon to monitor for electrolytes and for contraction alkalosis. Hypoxia: In setting of congestive heart failure along with obstructive sleep apnea. Oxygen supplementation keeping saturation over 90%. Continue with home CPAP. SHAMA- CPAP at night Plan for the day: Continue with current fluid restriction. Patient overall around 2.5 to 3 L negative. Switch from IV Lasix to Bumex 2 mg p.o. twice daily. Continue with current dose of metoprolol. Add low-dose Entresto twice daily. Patient is agreeable. Oxygen supplementation keeping saturation over 90%. Home O2 evaluation. GI prophylaxis: Protonix DVT prophylaxis: Lovenox 40 mg subcu daily CODE STATUS discussed with patient, he is full code for now PDMP PDMP Reviewed: Not Reviewed Attestations Medical Necessity Statement*: Requested hospitalization for management of hypoxia due to acute on chronic systolic and diastolic congestive heart failure while guideline directed medical therapy is uptitrated Diagnoses Acute on chronic systolic heart failure I50.23 Benign essential HTN I10 Obesity, Class II, BMI 35-39.9 E66.9 Cardiac resynchronization therapy defibrillator (VOCATIONAL EDUCATION TEACHER-D) in place Z95.810 Systolic CHF with reduced left ventricular function, NYHA class 2 I50.20 Dilated cardiomyopathy I42.0 Cardiomyopathy type: dilated Malignant hypertension I10 SHAMA (obstructive sleep apnea) G47.33
[2024-10-14] MEDS: bumetanide 1 mg Tablet 2 MG PO (17:36)
[2024-10-14] MEDS: sacubitril/valsartan 24-26 mg Tablet 1 EACH PO (17:36)
[2024-10-14] MEDS: enoxaparin 40 mg/0.4 mL Syringe SUBCUT (17:37)
[2024-10-14] MEDS: pantoprazole 40 mg SDV IVP (17:37)
[2024-10-15 04:00] VITALS: BP 113/69; PULSE 65; RESP 20; TEMP 37.1; O2SAT 96
[2024-10-15 05:50] LABS: Basophils # 0.1 10^3/uL (0.0-0.1); Basophils % 0.7 %; Eosinophils # 0.1 10^3/uL (0.0-0.8); Eosinophils % 0.9 %; Hematocrit 47.8 % (37-53); Lymphocytes # 1.3 10^3/uL (0.8-4.8); Lymphocytes % 18.8 %; Mean Corpuscular HGB Conc 31.8 g/dL (30-55); Mean Corpuscular Hemoglobin 31.7 pg (27-33); Mean Corpuscular Volume 99.8 fl (82-101); Mean Platelet Volume 10.5 fL (7.4-10.4); Monocytes % 14.1 %; Neutrophils # 4.47 10^3/uL (1.8-7.7); Neutrophils % 64.8 %; Nucleated Red Blood Cells % 0 %; Platelet Count 157 10^3/cmm (157-399); Red Blood Count 4.79 10^6/uL (3.85-5.65); Red Cell Distribution Width 13.9 % (12.1-15.1)
[2024-10-15 06:17] LABS: Magnesium 1.8 mg/dL (1.7-2.3)
[2024-10-15 06:19] LABS: Alanine Aminotransferase 39 U/L (0-41); Albumin Level 3.2 g/dL (3.5-5.2); Alkaline Phosphatase 142 U/L (40-130); Aspartate Amino Transferase 35 U/L (0-40); Blood Urea Nitrogen 16 mg/dL (6-20); Calcium 8.2 mg/dL (8.5-10.5); Carbon Dioxide 31 mmol/L (22-29); Chloride 100 mmol/L (98-107); Creatinine Clr Calc Pharmacy 120.4261; Globulin 3.3 g/dL (1.3-4.6); Glomerular Filtration Rate 87.6 mL/min (90-130); Glucose 95 mg/dL (65-115); Osmolality Calculated 291 mOsm/kg (285-295); Sodium 140 mmol/L (136-145); Total Bilirubin 0.7 mg/dL (0.15-1.2); Total Protein 6.5 g/dL (6.6-8.7)
[2024-10-15 07:45] VITALS: BP 106/67; PULSE 78; RESP 14; TEMP 36.4; O2SAT 93
[2024-10-15] MEDS: bumetanide 1 mg Tablet 2 MG PO (07:55)
[2024-10-15] MEDS: amiodarone 200 mg Tablet PO (07:56)
[2024-10-15] MEDS: escitalopram 10 mg Tablet PO (07:56)
[2024-10-15] MEDS: metoprolol succinate ER (24 HR) 100 mg Tablet PO (07:56)
[2024-10-15] MEDS: sacubitril/valsartan 24-26 mg Tablet 1 EACH PO (07:56)
[2024-10-15 08:40] VITALS: O2SAT 88; O2SAT 91; O2SAT 93
--- NOTE | 2024-10-15 10:01 | P.DS_ITS ---
Discharge Providers Date of Admission: 10/10/24 18:25 Date of Discharge: October 15, 2024 Attending Provider at Admission: Debi Martin MD Attending Provider at Discharge: Richard Meade MD Consults: Cardiology: Dr. Samson Diagnoses at Discharge Discharge Diagnosis (1) Acute on chronic systolic heart failure: Status: Acute (2) Atrial fibrillation: Status: Acute Qualifiers: Atrial fibrillation type: paroxysmal Qualified Code(s): I48.0 - Paroxysmal atrial fibrillation Permanent problem details: Pt refused to take blood thinning meds. (3) Malignant hypertension: Status: Acute Reason for Visit Reason for Visit: SOB Brief History: Gwendolyn Keith is a 54 year old male with past medical history of systolic congestive heart failure with reduced EF, cardiomyopathy, malignant hypertension, ICD, cardiac resynchronization therapy defibrillator presented with complaint of worsening shortness of breath. Patient just signed out AMA yesterday and came back today with worsening shortness of breath, and requiring 4 L of oxygen via nasal cannula. He further stated that he did not have oxygen at home and had to take care of his dogs hence he walked out AMA yesterday. Shortness of breath associated with chest discomfort, abdominal swelling and bilateral lower extremity edema. He has been unable to ambulate and # shortness of breath on exertion, and orthopnea. Denies any history of recent fever, cough, cold, palpitations, chest pain, dizziness, nausea/vomiting, diarrhea or urinary complaints. Denies any history of sick contact or recent travel. He lives alone and has been able to do his ADLs. Hospital Course Hospital Course Patient will go to the hospital further evaluation and management of hypoxic respiratory in setting of congestive heart failure. Echocardiogram on recent admission showed an EF of 15%. He was started on aggressive IV diuresis to which he responded well and is overall 5 L negative. Patient has been improving continuously and is tolerating diuresis well. He is been discharged stable condition on Bumex 2 mg twice daily. He is been counseled in detail about lifestyle modification with congestive heart failure. He is to continue seeing whole supply of his 4. Valsartan has been changed to Entresto. He will follow-up with his primary care provider within next 1 week and cardiology team in the next 2 weeks for further adjustment of medications. Physical Exam Narrative: He is alert awake oriented x 3, morbidly obese Chest B/L fine crackles present at the bases, otherwise clear to ascultation Cardiovascular : S1-S2 regular, pansystolic murmur at apex, JVD mildly elevated Abdomen soft distended nontender normal bowel sounds Extremities bilateral 4+ pitting edema present lower extremities Discharge Data Studies Completed and Pending Completed Studies During Hospitalization Category Date Time Status XR chest 1V portable [id number] Stat Exams 10/10/24 14:57 Completed Pending at discharge Category Date Time Status MAG [Magnesium] AM LABS Lab 10/16/24 04:00 Ordered Radiology Impressions Chest X-Ray 10/10/24 14:57 IMPRESSION: 1. Cardiac enlargement with mild pulmonary vascular congestion. No significant change. Laboratory Results WBC 6.90 10^3/uL (3.29-11.43) 10/15/24 03:28 RBC 4.79 10^6/uL (3.85-5.65) 10/15/24 03:28 Hgb 15.20 g/dL (11.27-16.99) 10/15/24 03:28 Hct 47.8 % (37-53) 10/15/24 03:28 MCV 99.8 fl (82-101) 10/15/24 03:28 MCH 31.7 pg (27-33) 10/15/24 03:28 MCHC 31.8 g/dL (30-55) 10/15/24 03:28 RDW 13.9 % (12.1-15.1) 10/15/24 03:28 Plt Count 157 10^3/cmm (157-399) 10/15/24 03:28 MPV 10.5 fL (7.4-10.4) H 10/15/24 03:28 Neut % (Auto) 64.8 % 10/15/24 03:28 Lymph % (Auto) 18.8 % 10/15/24 03:28 Gonzales % (Auto) 14.1 % 10/15/24 03:28 Eos % (Auto) 0.9 % 10/15/24 03:28 Baso % (Auto) 0.7 % 10/15/24 03:28 Neut # (Auto) 4.47 10^3/uL (1.8-7.7) 10/15/24 03:28 Lymph # (Auto) 1.3 10^3/uL (0.8-4.8) 10/15/24 03:28 Gonzales # (Auto) 1.0 10^3/uL (0.2-0.9) H 10/15/24 03:28 Eos # (Auto) 0.1 10^3/uL (0.0-0.8) 10/15/24 03:28 Baso # (Auto) 0.1 10^3/uL (0.0-0.1) 10/15/24 03:28 Nucleated RBC % (auto) 0 % 10/15/24 03:28 Nucleated RBCs # 0.0 /100WBC 10/15/24 03:28 Sodium 140 mmol/L (136-145) 10/15/24 03:28 Potassium 3.0 mmol/L (3.5-5.1) L 10/15/24 03:28 Chloride 100 mmol/L (98-107) 10/15/24 03:28 Carbon Dioxide 31 mmol/L (22-29) H 10/15/24 03:28 Anion Gap 12.0 (5-19) 10/15/24 03:28 BUN 16 mg/dL (6-20) 10/15/24 03:28 Creatinine 0.9 mg/dL (0.7-1.2) 10/15/24 03:28 GFR Calculation 87.6 mL/min (90-130) L 10/15/24 03:28 Glucose 95 mg/dL (65-115) 10/15/24 03:28 Estimat Average Glucose 123 10/13/24 05:18 Hemoglobin A1c 5.9 % (4.0-6.0) 10/13/24 05:18 Calculated Osmolality 291 mOsm/kg (285-295) 10/15/24 03:28 Calcium 8.2 mg/dL (8.5-10.5) L 10/15/24 03:28 Magnesium 1.8 mg/dL (1.7-2.3) 10/15/24 03:28 Iron 45 ug/dL (59-158) L 10/13/24 05:18 TIBC 437 mcg/dl 10/13/24 05:18 % Saturation 10.2 % (20-50) L 10/13/24 05:18 Unsat Iron Binding 392 ug/dL (112-347) H 10/13/24 05:18 Total Bilirubin 0.7 mg/dL (0.15-1.2) 10/15/24 03:28 AST 35 U/L (0-40) 10/15/24 03:28 ALT 39 U/L (0-41) 10/15/24 03:28 Alkaline Phosphatase 142 U/L (40-130) H 10/15/24 03:28 Troponin T Baseline 37 ng/L (0-15) H 10/10/24 15:17 Troponin T 120 Minute 39.37 ng/L (0-15) H 10/10/24 17:20 Delta Troponin T 2.37 ABS# (0-10) 10/10/24 17:20 Troponin T Hi Sens 6Hr 34.46 ng/L (0-15) H 10/10/24 21:15 Troponin T Hi Sens 6Hr Delta -2.54 ng/L (0-12) L 10/10/24 21:15 NT-Pro-B Natriuret Pep 3979 pg/mL (0-125) H 10/10/24 15:17 Total Protein 6.5 g/dL (6.6-8.7) L 10/15/24 03:28 Albumin 3.2 g/dL (3.5-5.2) L 10/15/24 03:28 Globulin 3.3 g/dL (1.3-4.6) 10/15/24 03:28 Vitamin B12 641 pg/mL (232-1245) 10/13/24 05:18 Folate 11.2 ng/mL (4.5-32.2) 10/14/24 02:27 Urine Opiates Screen Negative ng/mL (Negative) 10/10/24 21:12 Ur Barbiturates Screen Negative ng/mL (Negative) 10/10/24 21:12 Ur Phencyclidine Scrn Negative ng/mL (Negative) 10/10/24 21:12 Ur Amphetamines Screen Negative ng/mL (Negative) 10/10/24 21:12 U Benzodiazepines Scrn Negative ng/mL (Negative) 10/10/24 21:12 Urine Cocaine Screen Negative ng/mL (Negative) 10/10/24 21:12 U Marijuana (THC) Screen Negative ng/mL (Negative) 10/10/24 21:12 Vitals Last Vital Signs Temp 97.6 F 10/15/24 07:45 Pulse 78 04/30/25 07:45 Resp 14 10/15/24 07:45 BP 106/67 10/15/24 07:45 Pulse Ox 91 10/15/24 08:40 O2 Del Method CPAP 10/15/24 07:45 O2 Flow Rate 3 10/15/24 08:40 Discharge Plan Discharge Patient Disposition: Home Condition: Stable Prescriptions: New bumetanide 1 mg Tablet 2 mg PO BID 30 Days Qty: 120 0RF Entresto 24-26 mg Tablet 1 tab PO BID Qty: 60 0RF Continued amiodarone 200 mg tablet 200 mg PO DAILY Qty: 90 2RF eplerenone [Inspra] 50 mg tablet 50 mg PO DAILY Qty: 90 3RF metoprolol succinate 100 mg tablet extended release 24 hr 100 mg PO DAILY Qty: 90 3RF Discontinued meloxicam 15 mg tablet 15 mg PO DAILY Qty: 30 1RF furosemide [Lasix] 20 mg tablet 20 mg PO DAILY PRN (Reason: weight gain) Qty: 60 0RF Rx Instructions: needs appt for further refills valsartan 160 mg tablet 160 mg PO BID Qty: 180 2RF Discharge Orders: Discharge Order (Routine); Ordered 10/15/24 Ordered By: Richard Meade Other Ambulatory Orders: DME: Oxygen (Order) Location: None Selected Ordered By: Richard Meade Referrals: Ariella Gee NP [Nurse Practitioner, Cardiology] - 10/23/24 8:00 am Roxy Araujo DO [Physician, Family Practice] - 10/20/24 7:30 am Discharge Diet: Cardiac Discharge Activity: Resume usual activity and Increase activity as tolerated Patient Instructions: Bumetanide (By mouth) (Bumex), Sacubitril/Valsartan (By mouth) (Entresto, Entresto Sprinkle), A-fib (Atrial Fibrillation) (DC), Hypertension (DC), CHF Stoplight, Opioid Safety Activity Restrictions/Additional Instructions: Restrict fluid intake to less than 1500 cc, salt intake to less than 2 g daily. Advised to check his weight daily at home. Is advised that weight today would be the dry weight and if body weight increases by around 5 pounds, patient is to take an extra dose of Bumex daily till body weight comes down to weight today. If not able to come down to dry body weight in 1 week, then is to call cardiology office for further recommendations. Patient was counseled in detail to take medications regularly as prescribed. Valsartan has been discontinued. Instead take Entresto daily. Check your blood pressure daily at home maintain blood pressure diary. Goal blood pressures less than 140/90 mmhg. Discharge Attestations Time Spent in Discharge Care*: greater than 30 min Specific Discharge Activities: educating patient, discussing with pcp/other providers, discussing with skilled nursing case manager/social workers/dc planners, documenting/other paperwork and evaluating patient/reviewing data Status at Discharge: Cognitive status at discharge: cognitively intact , Behavioral status at discharge: cooperative , Functional status at discharge: independent ambulation , Overall status at discharge: patient is back to baseline Quality Metrics Clinical Quality Measures [ No reported AMI, CVA or VTE this stay] Coding Level of Care Code 06421 Total time (in minutes) for Discharge: 70 Diagnoses Acute on chronic systolic heart failure I50.23 Paroxysmal atrial fibrillation I48.0 Atrial fibrillation type: paroxysmal Malignant hypertension I10
--- NOTE | 2024-10-15 11:17 | PC.SOCIAL ---
IMM Update pg 2 of IMM updated and reviewed w/ patient. Copy provided and copy dated, initialed and placed in chart.
[2024-10-15 13:38] VITALS: BP 106/67; PULSE 83; RESP 20; TEMP 36.6; O2SAT 97
== END 2024-10-15 12:46 | disposition home or self-care (01) | DRG 291 ==
LOC: ER 17:58 → ER IP 18:26 → CSU 23:22
PROVIDERS: General Practice; Admitting Provider Internal Medicine; Emergency Provider Family Medicine; Visit Provider Student in an Organized Health Care Education/Training Program
DX: I11.0 Hypertensive heart disease with heart failure (principal); I50.43 Acute on chronic combined systolic (congestive) and diastolic (congestive) heart failure; N17.9 Acute kidney failure, unspecified; Z68.41 Body mass index [BMI] 40.0-44.9, adult; I42.9 Cardiomyopathy, unspecified; G47.33 Obstructive sleep apnea (adult) (pediatric); I42.0 Dilated cardiomyopathy; E66.812 Obesity, class 2; I08.2 Rheumatic disorders of both aortic and tricuspid valves; R09.02 Hypoxemia; I48.0 Paroxysmal atrial fibrillation; Z95.810 Presence of automatic (implantable) cardiac defibrillator; Z79.899 Other long term (current) drug therapy; Z87.891 Personal history of nicotine dependence
CPT/HCPCS: 36415; 71045; 80048; 80053; 80306; 82607; 82746; 83036; 83540; 83550; 83735; 83880; 84484; 85025; 93005; 94664; 94760; 96372; 96374; 96375; 96376; 99285; A9270; J1650; J1940; J2470; J9999

== ENCOUNTER → 2024-12-08 13:42 | Outpatient (BNVA) | payer MEDICARE, SELFPAY | PROVIDERS: PCP Family Medicine; Visit Provider Family Medicine | DX: Z13.6 Encounter for screening for cardiovascular disorders (principal); I50.20 Unspecified systolic (congestive) heart failure | CPT/HCPCS: 80053; 85025 ==

== ENCOUNTER → 2024-12-09 14:32 | Outpatient (BNVA) | payer MEDICARE, SELFPAY | PROVIDERS: PCP Family Medicine; Visit Provider Nurse Practitioner Family | DX: I11.0 Hypertensive heart disease with heart failure (principal); I50.23 Acute on chronic systolic (congestive) heart failure; I42.0 Dilated cardiomyopathy; I48.0 Paroxysmal atrial fibrillation; Z95.810 Presence of automatic (implantable) cardiac defibrillator; Z87.891 Personal history of nicotine dependence; Z79.01 Long term (current) use of anticoagulants | CPT/HCPCS: 99214 ==

== ENCOUNTER → 2024-12-23 13:53 | Outpatient (BNVA) | payer MEDICARE, SELFPAY | PROVIDERS: PCP Family Medicine; Visit Provider Nurse Practitioner Family | DX: I11.0 Hypertensive heart disease with heart failure (principal); I50.23 Acute on chronic systolic (congestive) heart failure; I48.0 Paroxysmal atrial fibrillation; Z95.810 Presence of automatic (implantable) cardiac defibrillator; Z79.01 Long term (current) use of anticoagulants; Z87.891 Personal history of nicotine dependence; I42.9 Cardiomyopathy, unspecified | CPT/HCPCS: 99213 ==

== ENCOUNTER 2025-01-08 10:59 | Outpatient (CLI) | payer MEDICARE, SELFPAY ==
--- NOTE | 2025-01-08 12:00 | CT_ITS ---
WS: [id number] CT LEFT HIP HISTORY: Chronic pain. Technique: All CT scans at [facility] use at least one of these dose optimization techniques: automated exposure control; mA and/or kV adjustment per patient size (includes targeted exams where dose is matched to clinical indication); or iterative reconstruction. DLP: 742.78 mGy.cm COMPARISON: Radiograph 06/23/2024 Severe degenerative changes involving the LEFT hip. There is bone upon bone involving the superior femoral head and the superior acetabulum. Numerous subcortical cystic changes on both sides of the joint space. There is a large osteophyte from the femoral head extending into the joint. Mild lateral sub luxation of the femoral head from the acetabulum. No fractures are identified. Loss of normal cortex over some of the subchondral cystic changes. No joint effusion. Mild synovial thickening. Mild narrowing of the SI joint. Pubic rami are intact. CT/CT hip LT wo con* [id number] IMPRESSION: 1. Severe degenerative changes involving the LEFT hip. 2. Bone upon bone involving the superior femoral head and the acetabulum with extensive subchondral cystic changes. Loss of bone over several of the subchond ral cystic lesions. 3. Extensive osteophytic ridging surrounding the femoral head extending into t he hip joint. 4. Slight lateral subluxation of the femoral head from the acetabulum.
== END 2025-01-08 11:00 | disposition home or self-care (01) ==
LOC: RAD 11:01
PROVIDERS: PCP Family Medicine; Visit Provider Specialist
DX: M16.12 Unilateral primary osteoarthritis, left hip (principal)
CPT/HCPCS: 73700

== ENCOUNTER 2025-01-22 12:23 | Outpatient (CLI) | payer MEDICARE, SELFPAY ==
--- NOTE | 2025-01-22 12:45 | USCV_ITS ---
Gwendolyn Keith Age: 54 Gender: M : 1970 Exam Date: 01/22/2025 12:43 Ordering Phys: Ariella Gee NP Technologist: NITISH Exam Location: [facility] [place] Indication: Systolic Cardiomyopathy BP: 110 / 64 HR: 73 Rhythm: Sinus Technical Quality: Adequate MEASUREMENTS (Male / Female) Normal Values 2D ECHO LV Diastolic Diameter PLAX 8.4 cm 4.2 - 5.9 / 3.9 - 5.3 cm IVS Diastolic Thickness 1.0 cm 0.6 - 1.0 / 0.6 - 0.9 cm IVS Systolic Thickness 1.9 cm LVPW Diastolic Thickness 1.8 cm 0.6 - 1.0 / 0.6 - 0.9 cm LVPW Systolic Thickness 1.8 cm LVOT Diameter 2.1 cm LV Ejection Fraction 2D Teich 34.3 % LV Ejection Fraction MOD 4C 33.1 % LV Ejection Fraction MOD 2C 41.4 % LV Ejection Fraction 2C AL 40.8 % LA Diameter 5.0 cm RA Systolic Volume 4C AL 60.5 ml RA Systolic Volume 4C MOD 57.5 ml LA Sys Volume AL 129.5 cm cubed LA Sys Volume Index AL 49.5 cm cubed/m squared Aorta at Sinotubular Diameter 3.0 cm IVC Diameter 2.6 cm DOPPLER AV Peak Velocity 143.0 cm/s LVOT Peak Velocity 117.0 cm/s AV Area Cont Eq vti 3.1 cm squared AV Area Cont Eq pk 2.9 cm squared TR Peak Velocity 120.0 cm/s TR Peak Gradient 5.8 mmHg TV Peak E Velocity 72.0 cm/s PV Peak Velocity 111.0 cm/s FINDINGS Left Ventricle Severe diffuse hypokinesis of the left ventricular ejection fraction 15-20 %. Moderately dilated LV Cavity. Right Ventricle Pacemaker/defibrillator wire in the right ventricle Right Atrium Pacemaker/defibrillator wire Left Atrium Severely increased left atrial size. Mitral Valve Thickened mitral valve. Moderate-severe mitral valve regurgitation. Aortic Valve No gross abnormalities noted Tricuspid Valve No gross abnormalities noted Pulmonic Valve Mild pulmonary valve regurgitation. Pericardium No pericardial effusion. Aorta Normal aortic annulus size. IVC Normal IVC dimension with <50% respiratory change of the inferior vena cava. CONCLUSIONS Severe diffuse hypokinesis of the left ventricular ejection fraction 15 to 20% (visual). Moderately dilated LV Cavity. Severely increased left atrial size.. Thickened mitral valve. Moderate-severe mitral valve regurgitation. Mild pulmonary valve regurgitation. Pacemaker/defibrillator wire of the right atrium and right ventricle There is no pericardial effusion. Right atrial pressure around 8 mm of Hg Compared to the study from 10/07/2024, there may not be a significant change. Dr Timbo Linares MD [facility] (Electronically Signed) Final Date: 25 January 2025 21:38 S
== END 2025-01-22 12:24 | disposition home or self-care (01) ==
LOC: RAD 12:24
PROVIDERS: PCP Family Medicine; Visit Provider Nurse Practitioner Family
DX: I42.0 Dilated cardiomyopathy (principal); I51.7 Cardiomegaly; I34.9 Nonrheumatic mitral valve disorder, unspecified; I34.0 Nonrheumatic mitral (valve) insufficiency; I37.1 Nonrheumatic pulmonary valve insufficiency; Z95.0 Presence of cardiac pacemaker; I51.89 Other ill-defined heart diseases
CPT/HCPCS: 93306

== ENCOUNTER → 2025-01-26 14:00 | Outpatient (BNVA) | payer MEDICARE, SELFPAY | PROVIDERS: PCP Family Medicine; Visit Provider Internal Medicine Cardiovascular Disease | DX: I11.0 Hypertensive heart disease with heart failure (principal); M16.12 Unilateral primary osteoarthritis, left hip; I50.20 Unspecified systolic (congestive) heart failure; I42.9 Cardiomyopathy, unspecified; I48.91 Unspecified atrial fibrillation; Z79.01 Long term (current) use of anticoagulants; Z79.82 Long term (current) use of aspirin; Z95.810 Presence of automatic (implantable) cardiac defibrillator; Z87.891 Personal history of nicotine dependence | CPT/HCPCS: 73502; 99214 ==

== ENCOUNTER → 2025-02-09 15:04 | Outpatient (BNVA) | payer MEDICARE, SELFPAY | PROVIDERS: PCP Family Medicine; Visit Provider Internal Medicine Cardiovascular Disease | DX: I11.0 Hypertensive heart disease with heart failure (principal); I50.20 Unspecified systolic (congestive) heart failure; I42.9 Cardiomyopathy, unspecified; I48.91 Unspecified atrial fibrillation; Z79.01 Long term (current) use of anticoagulants; Z79.82 Long term (current) use of aspirin; Z95.810 Presence of automatic (implantable) cardiac defibrillator; Z87.891 Personal history of nicotine dependence; R06.02 Shortness of breath | CPT/HCPCS: 36415; 80048; 83880; 99213; G0103 ==

== ENCOUNTER → 2025-02-10 09:25 | Outpatient (BNVA) | payer MEDICARE, SELFPAY | PROVIDERS: PCP Family Medicine; Visit Provider Family Medicine | DX: Z12.5 Encounter for screening for malignant neoplasm of prostate (principal); R73.9 Hyperglycemia, unspecified; Z11.4 Encounter for screening for human immunodeficiency virus [HIV]; Z11.59 Encounter for screening for other viral diseases | CPT/HCPCS: 85025; 86803; 87389 ==

== ENCOUNTER 2025-02-18 08:55 | Outpatient (CLI) | payer MEDICARE, SELFPAY ==
--- NOTE | 2025-02-18 09:30 | CT_ITS ---
WS: [id number] LDCT LUNG CANCER SCREENING HISTORY: screening TECHNIQUE: Axial imaging performed from the apices to 1 cm below the costophrenic angles. Coronal and sagittal reformats are submitted with axial MIP series. All CT scans at [facility] use at least one of these dose optimization techniques: automated exposure control; mA and/or kV adjustment per patient size (includes targeted exams where dose is matched to clinical indication); or iterative reconstruction. DLP: 214.59 mGy.cm DIvol: Mean CTDIvol: 5.40 (mGy) COMPARISON: None available. Diagnostic quality: Satisfactory Lungs: Lung volumes are decreased due to poor inspiratory effort. Mild hazy attenuation throughout both lungs. Mild dependent changes at the lung bases. Mild pleural thickening along the RIGHT minor fissure. No mass or pulmonary nodule. There is crowding of the lung markings and limited visualization due to motion artifact at the lung bases. Heart: Moderate cardiomegaly. LEFT subclavian defibrillator/pacer is present.. Other findings: Minimal atherosclerosis aorta. No pathologically enlarged lymph nodes. Bilateral gynecomastia. No adrenal mass. No destructive bone lesions. CT/CT lung screening [id number] IMPRESSION: LUNG-RADS: 1-Negative FOLLOW UP: 12 Month: Continue annual screening with LDCT OTHER FINDINGS (S MODIFIER): None.
== END 2025-02-18 08:56 | disposition home or self-care (01) ==
LOC: RAD 08:56
PROVIDERS: PCP Family Medicine; Visit Provider Family Medicine
DX: Z12.2 Encounter for screening for malignant neoplasm of respiratory organs (principal); Z87.891 Personal history of nicotine dependence; Z95.810 Presence of automatic (implantable) cardiac defibrillator; N62 Hypertrophy of breast; R94.2 Abnormal results of pulmonary function studies; J98.4 Other disorders of lung; R91.8 Other nonspecific abnormal finding of lung field
CPT/HCPCS: 71271

== ENCOUNTER → 2025-02-23 11:03 | Outpatient (BNVA) | payer MEDICARE, SELFPAY | PROVIDERS: PCP Family Medicine; Visit Provider Internal Medicine Cardiovascular Disease | DX: I11.0 Hypertensive heart disease with heart failure (principal); I50.20 Unspecified systolic (congestive) heart failure; I42.9 Cardiomyopathy, unspecified; I48.91 Unspecified atrial fibrillation; Z79.01 Long term (current) use of anticoagulants; Z95.810 Presence of automatic (implantable) cardiac defibrillator; Z87.891 Personal history of nicotine dependence; R06.02 Shortness of breath | CPT/HCPCS: 36415; 80048; 83880; 99213 ==

== ENCOUNTER 2025-03-25 09:24 | Outpatient (CLI) | payer MEDICARE, SELFPAY ==
--- NOTE | 2025-03-25 09:30 | US_ITS ---
WS: [id number] RIGHT UPPER QUADRANT ULTRASOUND HISTORY: abdominal distention / etoh abuse COMPARISON: None available. Liver: 17.4 cm in length. Liver is difficult to visualize due to patient's body habitus. No mass identified. Mild coarse echotexture. No intrahepatic duct dilatation. Portal Vein: Normal hepatopetal flow with monophasic waveform. Gallbladder: Normally distended gallbladder with no stones or wall thickening. CBD: 0.5 cm Pancreas: Poorly visualized pancreas. The pancreas is is echogenic. No adjacent fluid. Right kidney: 12.7 cm in length. Normal size and echogenicity. No hydronephrosis or mass. Aorta and IVC: Limited. No ascites. US/US liver [id number] IMPRESSION: 1. Technically limited RIGHT upper quadrant ultrasound due to body habitus. 2. Normal gallbladder. 3. Echogenic pancreas consistent with fatty replacement. 4. Liver evaluation is limited. No mass or intrahepatic duct dilatation identi fied.
== END 2025-03-25 09:25 | disposition home or self-care (01) ==
LOC: RAD 09:25
PROVIDERS: PCP Family Medicine; Visit Provider Family Medicine
DX: F10.11 Alcohol abuse, in remission (principal)
CPT/HCPCS: 76705

== ENCOUNTER → 2025-04-29 13:23 | Outpatient (BNVA) | payer MEDICARE, SELFPAY | PROVIDERS: PCP Family Medicine; Visit Provider Student in an Organized Health Care Education/Training Program | DX: M25.552 Pain in left hip (principal); G89.29 Other chronic pain; M16.12 Unilateral primary osteoarthritis, left hip | CPT/HCPCS: 73502; 99204 ==

== ENCOUNTER → 2025-05-04 14:33 | Outpatient (BNVA) | payer MEDICARE, SELFPAY | PROVIDERS: PCP Family Medicine; Visit Provider Internal Medicine Cardiovascular Disease | DX: I42.9 Cardiomyopathy, unspecified (principal); I11.0 Hypertensive heart disease with heart failure; I50.20 Unspecified systolic (congestive) heart failure; I48.0 Paroxysmal atrial fibrillation; Z79.01 Long term (current) use of anticoagulants; Z79.82 Long term (current) use of aspirin; Z95.810 Presence of automatic (implantable) cardiac defibrillator; Z87.891 Personal history of nicotine dependence | CPT/HCPCS: 99214 ==

== ENCOUNTER 2025-05-15 08:04 | Outpatient (CLI) | payer MEDICARE, SELFPAY ==
--- NOTE | 2025-05-15 08:30 | USCV_ITS ---
Gwendolyn Keith Age: 55 Gender: M : 1970 Exam Date: 05/15/2025 08:27 Ordering Phys: Timbo Linares MD ([email or web address]) Technologist: Exam Location: [facility] [place] Indication: ef BP: 122 / 67 HR: Rhythm: Sinus Technical Quality: Adequate MEASUREMENTS (Male / Female) Normal Values 2D ECHO LV Diastolic Diameter PLAX 7.6 cm 4.2 - 5.9 / 3.9 - 5.3 cm IVS Diastolic Thickness 1.5 cm 0.6 - 1.0 / 0.6 - 0.9 cm IVS Systolic Thickness 2.1 cm LVPW Diastolic Thickness 1.6 cm 0.6 - 1.0 / 0.6 - 0.9 cm LVPW Systolic Thickness 1.9 cm LVOT Diameter 2.7 cm LV Ejection Fraction 2D Teich 30.1 % LV Ejection Fraction MOD 4C 30.6 % LV Ejection Fraction MOD 2C 36.1 % LV Ejection Fraction 2C AL 36.3 % LA Diameter 4.5 cm RA Systolic Volume 4C AL 92.6 ml RA Systolic Volume 4C MOD 66.3 ml Aorta at Sinotubular Diameter 3.7 cm IVC Diameter 1.9 cm M-MODE LA Ao Ratio MM 1.3 AV Cusp Separation MM 3.4 cm FINDINGS Left Ventricle Moderately dilated LV cavity. Severe diffuse hypokinesis of the left ventricle with an ejection fraction of 20 to 25% (visual). Right Ventricle Pacemaker/defibrillator wire in the right ventricle. Possibly of normal size and ejection fraction Right Atrium Pacemaker/defibrillator wire. Possibly of normal size Left Atrium Mildly dilated left atrium IA Septum Normal interatrial septum. Mitral Valve Structurally normal mitral valve. Aortic Valve No gross abnormalities noted Tricuspid Valve Tricuspid valve not well visualized. Pulmonic Valve Pulmonic valve not well visualized. Pericardium No pericardial effusion. Aorta Normal aortic annulus size. IVC Normal inferior vena cava. CONCLUSIONS Severe diffuse hypokinesis of the left ventricle with an ejection fraction of 20 to 25% (visual). Moderately dilated LV cavity. Mildly dilated left atrium. Pacemaker/defibrillator wire in the right atrium/right ventricle. Right ventricle, possibly of normal size and ejection fraction. There is no pericardial effusion. Technically somewhat difficult study. Compared to the study from 01/22/2025, there may be a slight improvement in the ejection fraction Dr Timbo Linares MD [facility] (Electronically Signed) Final Date: 18 May 2025 09:21 S
== END 2025-05-15 08:05 | disposition home or self-care (01) ==
LOC: RAD 08:05
PROVIDERS: PCP Family Medicine; Visit Provider Internal Medicine Cardiovascular Disease
DX: I42.9 Cardiomyopathy, unspecified (principal); I51.7 Cardiomegaly; Z95.0 Presence of cardiac pacemaker; I51.89 Other ill-defined heart diseases
CPT/HCPCS: 93308

== ENCOUNTER → 2025-06-01 10:30 | Outpatient (BNVA) | payer MEDICARE, SELFPAY | PROVIDERS: PCP Family Medicine; Visit Provider Internal Medicine Cardiovascular Disease | DX: I42.9 Cardiomyopathy, unspecified (principal); I11.0 Hypertensive heart disease with heart failure; I50.20 Unspecified systolic (congestive) heart failure; I48.0 Paroxysmal atrial fibrillation; Z79.01 Long term (current) use of anticoagulants; Z79.82 Long term (current) use of aspirin; Z95.810 Presence of automatic (implantable) cardiac defibrillator; R06.02 Shortness of breath; R07.9 Chest pain, unspecified | CPT/HCPCS: 36415; 80048; 83880; 93005; 99214 ==

== ENCOUNTER 2025-06-17 06:38 | Outpatient (CLI) | payer MEDICARE, SELFPAY ==
--- NOTE | 2025-06-17 07:00 | CT_ITS ---
WS: [id number] CT LEFT hip for [facility] procedure HISTORY: LEFT TOTAL HIP ARTHROPLASTY COMPARISON: Radiographs 04/29/2025 TECHNIQUE: Protocol for DIONY total hip replacement has been obtained. This includes axial imaging from the hip joint through the knee joint. DLP: 899.72 mGy FINDINGS: LEFT hip: Severe degenerative changes involve the LEFT hip. Joint space narrowing with osteophytic ridging and loss of the normal contour of the hip. Sclerotic and lytic changes involving the acetabulum also. Marked hypertrophic bone formation. No fractures. Bilateral SI joint arthropathy with partial fusion. Mild atherosclerosis aorta. LEFT knee: Bipartite patella. Very mild joint space narrowing. No destructive bone lesions. Moderate plaque in the distal femoral and popliteal and proximal tibial arteries. CT/CT hip LT [facility] [id number] IMPRESSION: CT imaging provided for [facility] robotic total hip replacement.
== END 2025-06-17 06:39 | disposition home or self-care (01) ==
LOC: RAD 06:39
PROVIDERS: PCP Family Medicine; Visit Provider Student in an Organized Health Care Education/Training Program
DX: M16.12 Unilateral primary osteoarthritis, left hip (principal); Q74.1 Congenital malformation of knee
CPT/HCPCS: 73700